=== PATIENT | female | born 1935 | race African-American/Black ===

== ENCOUNTER → 2016-07-27 | Outpatient (CLI) | payer MEDICARE ==
--- NOTE | 2016-07-27 16:04 | RAD ---
DATE: 07/27/16 EXAM: DIGITAL SCREEN BILAT W/CAD HISTORY: Routine screening COMPARISON: 01/24/15 This study was interpreted with the benefit of Computerized Aided Detection (CAD). TECHNIQUE: Routine CC and MLO views of both breasts are obtained. FINDINGS: The breast tissue density is [B ] . shows scattered fibroglandular densities, category B. There are no dominant suspicious masses, suspicious microcalcifications or evidence of architectural distortion. Stable benign-appearing calcifications are seen bilaterally IMPRESSION: Benign findings BI-RADS CATEGORY: 2 BENIGN FINDING(S) RECOMMENDED FOLLOW-UP: 12M 12 MONTH FOLLOW-UP PQRS compliance statement: Patient information was entered into a reminder system with a target due date for the next mammogram. Mammography is a sensitive method for finding small breast cancers, but it does not detect them all and is not a substitute for careful clinical examination. A negative mammogram does not negate a clinically suspicious finding and should not result in delay in biopsying a clinically suspicious abnormality. "Our facility is accredited by the [employer] Mammography Program."
== END | disposition home or self-care (01) ==
LOC: MAMMO 16:05
DX: Z12.31 Encounter for screening mammogram for malignant neoplasm of breast (principal)
CPT/HCPCS: G0202; 77067

== ENCOUNTER 2016-10-10 16:11 | Inpatient (IN) | payer BC, MEDICARE ==
[~2016-10-10] VITALS: Ht 160 cm; Wt 60.8 kg
[2016-10-10] MEDS ORDERED: IPRATRPIUM/ALBUTEROL 0.5/2.5MG 3 ML NEBU. NEB ONE (16:30)
--- NOTE | 2016-10-10 16:35 | ED.ADGEN ---
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 Patient states she is having chest pain only with coughing, abdominal pain with coughing as well, denies any weakness or numbness, and vertiginous symptoms, no fevers or chills, no GI or complaints. States she came to the emergency department today because the cough is getting worse, patient noted to be expressing a fluctuating oxygen saturation, between 89-95%, denies any recent travel or surgery, history of DVT or PE, states she will occasionally have swelling of the lower extremities. Patient does use an albuterol inhaler as needed, last used it several days ago. Review of Systems Review of Systems Constitutional: Denies fever or chills. [] Eyes: Denies change in visual acuity. [] HENT: Denies nasal congestion or sore throat. [] Respiratory: Productive cough or shortness of breath over the past weeks, worsening over the past several days. Cardiovascular: Chest pain with cough, intermittent lower extremity edema.] GI: Denies abdominal pain, nausea, vomiting, bloody stools or diarrhea. [] : Denies dysuria. [] Musculoskeletal: Denies back pain or joint pain. [] Integument: Denies rash. [] Neurologic: Denies headache, focal weakness or sensory changes. [] Endocrine: Denies polyuria or polydipsia. [] Lymphatic: Denies swollen glands. [] Psychiatric: Denies depression or anxiety. [] Current Medications Current Medications Current Medications Medications (Trade) Dose Ordered Sig/Caesar Start Time Stop Time Status Last Admin Dose Admin Albuterol/ Ipratropium (Duoneb) 3 ml 1X ONCE 10/10/16 16:30 10/10/16 16:33 DC 10/10/16 16:41 3 ML Info (Do NOT chart on this entry -- for MONITORING) 1 each PRN DAILY PRN 10/10/16 18:00 10/12/16 17:59 Iohexol (Omnipaque 300 Mg/ml) 75 ml 1X ONCE 10/10/16 18:00 10/10/16 18:01 DC 10/10/16 18:26 75 ML Allergies Allergies Allergies Coded Allergies Type Severity Reaction Last Updated Verified No Known Drug Allergies 10/10/16 No Physical Exam Physical Exam Constitutional: Well developed, well nourished, no acute distress, non-toxic appearance. [] HENT: Normocephalic, atraumatic, bilateral external ears normal, oropharynx moist, no oral exudates, nose normal. [] Eyes: PERRLA, EOMI, conjunctiva normal, no discharge. [] Neck: Normal range of motion, no tenderness, supple, no stridor. [] Cardiovascular:Heart rate regular rhythm, no murmur, S1, S2, rubs or gallops. [] Lungs & Thorax: Diminished breath sounds throughout, mild wheezing noted scattered throughout, no rhonchi or rales. Mild reproducible tenderness palpation in the anterior chest wall, no crepitus. [] Abdomen: Bowel sounds normal, soft, no tenderness, no rebound, rigidity, no guarding, no masses, no pulsatile masses. [] Skin: Warm, dry, no erythema, no rash. [] Back: No tenderness, no CVA tenderness. [] Extremities: No tenderness, no cyanosis, no clubbing, ROM intact, no edema. Negative Homans sign. [] Neurologic: Alert and oriented X 3, normal motor function, normal sensory function, no focal deficits noted. [] Psychologic: Affect normal, judgement normal, mood normal. [] Current Patient Data Vital Signs Vital Signs Date Time Temp Pulse Resp B/P (MAP) Pulse Ox O2 Delivery O2 Flow Rate FiO2 10/10/16 19:00 92 29 158/83 (108) 91 Room Air 10/10/16 16:20 98.7 98.7 Lab Values Laboratory Tests Test 10/10/16 16:50 White Blood Count 4.5 x10^3/uL (4.0-11.0) Red Blood Count 3.86 x10^6/uL (3.50-5.40) Hemoglobin 11.7 g/dL (12.0-15.5) L Hematocrit 34.7 % (36.0-47.0) L Mean Corpuscular Volume 90 fL (79-100) Mean Corpuscular Hemoglobin 30 pg (25-35) Mean Corpuscular Hemoglobin Concent 34 g/dL (31-37) Red Cell Distribution Width 13.9 % (11.5-14.5) Platelet Count 240 x10^3/uL (140-400) Neutrophils (%) (Auto) 35 % (31-73) Lymphocytes (%) (Auto) 48 % (24-48) Monocytes (%) (Auto) 10 % (0-9) H Eosinophils (%) (Auto) 6 % (0-3) H Basophils (%) (Auto) 1 % (0-3) Neutrophils # (Auto) 1.6 x10^3uL (1.8-7.7) L Lymphocytes # (Auto) 2.2 x10^3/uL (1.0-4.8) Monocytes # (Auto) 0.5 x10^3/uL (0.0-1.1) Eosinophils # (Auto) 0.2 x10^3/uL (0.0-0.7) Basophils # (Auto) 0.0 x10^3/uL (0.0-0.2) Sodium Level 139 mmol/L (136-145) Potassium Level 3.6 mmol/L (3.5-5.1) Chloride Level 102 mmol/L (98-107) Carbon Dioxide Level 34 mmol/L (21-32) H Anion Gap 3 (6-14) L Blood Urea Nitrogen 13 mg/dL (7-20) Creatinine 0.6 mg/dL (0.6-1.0) Estimated GFR (Cockcroft-Gault) 115.5 BUN/Creatinine Ratio 22 (6-20) H Glucose Level 94 mg/dL (70-99) Calcium Level 9.7 mg/dL (8.5-10.1) Total Bilirubin 0.2 mg/dL (0.2-1.0) Aspartate Amino Transferase (AST) 22 U/L (15-37) Alanine Aminotransferase (ALT) 12 U/L (14-59) L Alkaline Phosphatase 67 U/L (46-116) Troponin I Quantitative < 0.017 ng/mL (0.000-0.055) TP-Wek-T-Type Natriuretic Peptide 329 pg/mL (0-449) Total Protein 9.4 g/dL (6.4-8.2) H Albumin 3.2 g/dL (3.4-5.0) L Albumin/Globulin Ratio 0.5 (1.0-1.7) L Thyroid Stimulating Hormone (TSH) 2.169 uIU/mL (0.358-3.74) Laboratory Tests 10/10/16 16:50 Laboratory Tests 10/10/16 16:50 EKG EKG EC: Sinus rhythm, heart rate 90 bpm, QTC of 457, CO 138, QRS of 102, left axis deviation with left ventricular hypertrophy, abnormal ECG, does not meet STEMI criteria. No prior for comparison. As interpreted by me. [] Radiology/Procedures Radiology/Procedures [][facility] [address] [place] [address] IMAGING REPORT Signed PATIENT: CURTIS DE DIOS ACCOUNT: [id number] : 1935 LOCATION: ER AGE: 81 SEX: F EXAM STATUS: REG ER ORD. PHYSICIAN: ZI TOLEDO DO REASON: SOB/Hypoxia/Cough PROCEDURE: CT ANGIOGRAPHY CHEST CT angiogram of the chest with contrast: Reason for examination: Shortness of breath and hypoxia with cough. Helical images were obtained through the chest with intravenous administration of 75 cc Omnipaque 300 using PE protocol. 3D MIPS reconstruction was performed in sagittal and coronal planes. There appears to be a large soft tissue density in the left paratracheal region in the superior mediastinum measuring approximately 5.8 x 8.1 centimeters in greatest transaxial dimensions which likely represents a thyroid mass and causes deviation of the trachea to the right. Trachea and mainstem bronchi show no intraluminal lesions. No abnormalities seen in the esophagus. The thoracic aorta is tortuous with arteriosclerotic vascular calcification but no aneurysmal dilatation or dissection is seen. The heart size is upper normal with no pericardial effusion. There is no evidence of pulmonary embolus. There are however patchy infiltrates bilaterally which are suspicious of bilateral pneumonia. No pleural effusions are seen. No pneumothorax is present. In the visualized portion of the abdomen, no abnormalities seen in the liver, spleen or adrenal glands. Impression: No evidence of pulmonary embolus. Patchy infiltrates bilaterally. Large soft tissue density in the left paratracheal region and superior mediastinum suspicious of a large thyroid mass. Further evaluation with ultrasound can be performed. Exposure: One or more of the following individualized dose reduction techniques were used for this examination: 1. Automated exposure control. 2. Adjustment of the mA and/or kV according to patient size. 3. Use of iterative reconstruction technique. Electronically signed by: Germania Gloria MD (October 10, 2016 18:41:35) DICTATED and SIGNED BY: MARIA DOLORES GLORIA MD DATE: 10/10/16 1841 CC: ZI TOLEDO DO; NO PCP ~ Course & Med Decision Making Course & Med Decision Making Pertinent Labs and Imaging studies reviewed. (See chart for details) Patient with a fluctuating oxygen saturation, down to 89%, up to the mid 90s. Patient is agreeable to receiving x-ray laboratory studies, x-ray reveals patchy infiltrates bilaterally, concern for a possible mass in the mediastinum. CT of the chest obtained to further elucidate this evaluation, reveals patchy of present stated, and a thyroid mass extending to the mediastinum. Did discuss this with patient and family patient has A history of a thyroid mass/cancer that was treated with iodine, as far as they are aware the patient is not experiencing any problems currently, and does not require any medication for her thyroid at this point. Patient is agreeable for admission to the hospital, treatment with antibiotics. Initiated antibiotic in the emergency department, without issue. Findings as above discussed with Dr. Troncoso, patient does not currently her primary care provider but did have an appointment to see Dr. Baker last week which she missed do not feeling well, he is agreeable to accept the patient to his service in behalf of her soon-to-be primary so she will be able to establish continuity of care. Consultation also placed for pulmonary for further evaluation. Patient remained stable and comfortable in the emergency department sinus rhythm, transfer to the floor without issue. Dragon Disclaimer Dragon Disclaimer This electronic medical record was generated, in whole or in part, using a voice recognition dictation system. Departure Impression: Primary Impression: Community acquired pneumonia Disposition: ADMITTED INPATIENT Admitting Physician: Felicitas Baker Condition: IMPROVED ZI TOLEDO DO October 10, 2016 16:35
[2016-10-10 17:03] LABS: BASO % 1 % (0-3); EOS % 6 % (0-3); HEMATOCRIT 34.7 % (36.0-47.0); HEMOGLOBIN 11.7 g/dL (12.0-15.5); LYMPH # 2.2 x10^3/uL (1.0-4.8); LYMPH % 48 % (24-48); MEAN CORPUSCULAR HEMOGLOBIN 30 pg (25-35); MEAN CORPUSCULAR HGB CONC 34 g/dL (31-37); MEAN CORPUSCULAR VOLUME 90 fL (79-100); MONO % 10 % (0-9); NEUT % 35 % (31-73); PLATELET COUNT 240 x10^3/uL (140-400); RED BLOOD COUNT 3.86 x10^6/uL (3.50-5.40); RED CELL DISTRIBUTION WIDTH 13.9 % (11.5-14.5); WHITE BLOOD COUNT 4.5 x10^3/uL (4.0-11.0)
[2016-10-10 17:15] LABS: CALCIUM 9.7 mg/dL (8.5-10.1); CREATININE 0.6 mg/dL (0.6-1.0); GFR 115.5; POTASSIUM 3.6 mmol/L (3.5-5.1)
[2016-10-10 17:25] LABS: ALBUMIN 3.2 g/dL (3.4-5.0); ALBUMIN/GLOBULIN RATIO 0.5 (1.0-1.7); TOTAL BILIRUBIN 0.2 mg/dL (0.2-1.0); TOTAL PROTEIN 9.4 g/dL (6.4-8.2)
[2016-10-10] MEDS ORDERED: CONTRAST GIVEN MC PRN (18:00)
[2016-10-10] MEDS ORDERED: IOHEXOL 300 MG/ML 75 ML VIAL IV ONE (18:00)
--- NOTE | 2016-10-10 18:43 | RAD ---
CT angiogram of the chest with contrast: Reason for examination: Shortness of breath and hypoxia with cough. Helical images were obtained through the chest with intravenous administration of 75 cc Omnipaque 300 using PE protocol. 3D MIPS reconstruction was performed in sagittal and coronal planes. There appears to be a large soft tissue density in the left paratracheal region in the superior mediastinum measuring approximately 5.8 x 8.1 centimeters in greatest transaxial dimensions which likely represents a thyroid mass and causes deviation of the trachea to the right. Trachea and mainstem bronchi show no intraluminal lesions. No abnormalities seen in the esophagus. The thoracic aorta is tortuous with arteriosclerotic vascular calcification but no aneurysmal dilatation or dissection is seen. The heart size is upper normal with no pericardial effusion. There is no evidence of pulmonary embolus. There are however patchy infiltrates bilaterally which are suspicious of bilateral pneumonia. No pleural effusions are seen. No pneumothorax is present. In the visualized portion of the abdomen, no abnormalities seen in the liver, spleen or adrenal glands. Impression: No evidence of pulmonary embolus. Patchy infiltrates bilaterally. Large soft tissue density in the left paratracheal region and superior mediastinum suspicious of a large thyroid mass. Further evaluation with ultrasound can be performed. Exposure: One or more of the following individualized dose reduction techniques were used for this examination: 1. Automated exposure control. 2. Adjustment of the mA and/or kV according to patient size. 3. Use of iterative reconstruction technique. Electronically signed by: Germania Kramer MD (October 10, 2016 18:41:35)
--- NOTE | 2016-10-10 19:06 | ACF ---
Admission Forms Criteria GENERAL ADMISSION CRITERIA (Place 'X' for any and all applicable criteria): Admission is indicated for ANY ONE of the following: [ ]I. Hemodynamic instability as indicated by ANY ONE of the following(1)(2) (3)(4)(5): [ ]a) Vital sign abnormality not readily corrected by appropriate treatment within 12 to 24 hours indicated by ANY ONE of the following: [ ]i) Hypotension [ ]ii) Symptomatic Tachycardia unresponsive to treatment (eg , analgesia, fluids, sedation as indicated) [ ]iii) Orthostatic vital sign changes unresponsive to treatment (eg, fluids) [ ]b) Vital sign abnormality that is severe indicated by ANY ONE of the following: [ ]i) Inadequate perfusion indicated by ANY ONE of the following: [ ]1) Lactic acidosis (greater than 2 mmol/L) [ ]2) New abnormal capillary refill (greater than 3 seconds) [ ]3) Other metabolic acidosis (arterial pH less than 7.35) not otherwise explained [ ]4) Reduced urine output [ ]5) Altered mental status [ ]6) Myocardial Ischemia [ ]v) Mean arterial pressure[A] less than 60 mm Hg [ ]vi) Mean arterial pressure[A] less than 70 mm Hg after 30 minutes of appropriate treatment (eg, fluid resuscitation) [ ]vii) IV inotropic or vasopressor medication required to maintain adequate blood pressure or perfusion [ ]viii) Sustained heart rate greater than 120 beats per minute in adult or child 6 years or older[B]] [ ]II. Hypertension requiring inpatient treatment as indicated by ANY ONE of the following(6)(7)(8): [ ]a) SBP greater than 220 mm Hg or DBP greater than 120 mm Hg despite treatment [ ]b) SBP greater than 140 mm Hg or DBP greater than 100 mm Hg with evidence of acute end organ damage as indicated by ANY ONE of the following: [ ]i) Encephalopathy [ ]ii) Acute renal failure as indicated by new onset of ANY ONE of the following(9)(10)(11)(12)(13): [ ]1) A 3-fold rise in serum creatinine from baseline [ ]2) Serum creatinine greater than 4 mg/dL ( 354 micromoles/L) with acute rise greater than 0.5 mg/dL (44.2 micromoles/L) [ ]3) Reduction of more than 75% in estimated glomerular filtration rate from baseline [ ]4) Estimated glomerular filtration rate less than 35 mL/min/1.73m2 (0.59 mL/sec/1.73m2) in child up to 18 years of age [ ]5) Cessation of urine output indicated by ALL of the following: [ ]A. Adequate volume status [ ]B. Inadequate urine output as indicated by ANY ONE of the following: [ ]a. Urine output less than 0.3 mL/kg/hr for 24 hours [ ]b. Anuria (urine output less than 0.1 mL/kg/hr) for 12 hours [ ]iii) Aortic dissection [ ]iv) Myocardial ischemia [ ]v) Left ventricular heart failure [ ]vi) Retinal hemorrhage [ ]vii) Other significant finding [ ]c) Hypertension in child requiring inpatient treatment as indicated by ALL of the following(14)(15)(16): [ ]i) Outpatient treatment not effective, not available, or not appropriate [ ]ii) SBP or DBP greater than 95th percentile for age [ ]iii) Evidence of acute end organ damage as indicated by ANY ONE of the following: [ ]1) Altered mental status [ ]2) Acute renal failure as indicated by new onset of ANY ONE of the following(9)(10)(11)(12)(13): [ ]A. A 3-fold rise in serum creatinine from baseline [ ]B. Serum creatinine greater than 4 mg/dL (354 micromoles/L) with acute rise greater than 0.5 mg/dL (44.2 micromoles/L) [ ]C. Reduction of more than 75% in estimated glomerular filtration rate from baseline [ ]D. Estimated glomerular filtration rate less than 35 mL/min/1.73m2 (0.59 mL/sec/1.73m2)in child up to 18 years of age [ ]E. Cessation of urine output indicated by ALL of the following: [ ]a. Adequate volume status [ ]b. Inadequate urine output as indicated by ANY ONE of the following: [ ]1) Urine output less than 0.3 mL/kg/hr for 24 hours [ ]2) Anuria (urine output less than 0.1 mL/kg/hr) for 12 hours [ ]3) Severe headache [ ]4) Visual disturbance [ ]5) Retinal hemorrhage [ ]6) Other significant finding [ ]III. Acute cardiac or peripheral ischemia as indicated by ANY ONE of the following: [ ]a) Acute coronary syndrome(17)(18) [ ]b) Acute peripheral ischemia (eg, pulseless, cool, mottled, or cyanotic extremity)(19) [ ]IV. Cardiac arrhythmias or findings of immediate concern indicated by ANY ONE of the following(20)(21): [ ]a) Heart rhythms that are inherently dangerous or unstable indicated by ANY ONE of the following(22)(23)(24): [ ]i) Resuscitated ventricular fibrillation or cardiac arrest [ ]ii) Ventricular escape rhythm [ ]iii) Sustained ventricular tachycardia (30 seconds or more of ventricular rhythm at greater than 100 beats per minute) [ ]iv) Nonsustained ventricular tachycardia and ANY ONE of the following: [ ]1) Suspected cardiac ischemia as cause or consequence of ventricular tachycardia [ ]2) In setting of acute myocarditis [ ]b) Unstable cardiac conduction defects indicated by ANY ONE of the following(24)(25)(26): [ ]i) Type II second-degree atrioventricular block [ ]ii) Third-degree atrioventricular block [ ]iii) New-onset left bundle branch block with suspected myocardial ischemia [ ]c) Any heart rhythm and ANY ONE of the following(22)(23)(27)(28)( 29): [ ] i) Continuous long-term ECG monitoring needed (eg, initiation of drug requiring monitoring for more than 24 hours) [ ] ii) Patient has automatic implanted cardioverter defibrillator that is repeatedly firing, malfunctioning, or in need of immediate adjustment of settings beyond the scope of ambulatory or observation care. [ ]d) Heart rhythms of concern due to ANY ONE of the following: [ ]i) Hypotension [ ]ii) Respiratory distress [ ]iii) Association with other significant symptoms (eg, bradycardia with syncope or ongoing dizziness, supraventricular tachycardia with chest pain) (27)(28) (30) [ ] V. Severe heart failure as indicated by ANY ONE of the following ( 31)(32): [ ]a) Respiratory distress [ ]b) Hypotension [ ]c) Anasarca (refractory to outpatient therapy) [ ]d) Cardiac arrhythmias of immediate concern [ ]e) Myocardial ischemia [X]. Respiratory abnormalities, including ANY ONE of the following(33)(34) (35)(36): [ ]a) Respiratory rate greater than 30 breaths per minute unresponsive to treatment [A] [ ]b) New saturation of arterial oxygen less than 90% [ ]c) New partial pressure of carbon dioxide greater than 44 mm Hg ( 5.9 kPa) [X]d) Supplemental oxygen or respiratory treatments needed that are new or not performable at other levels of care [ ]e) New-onset cyanosis [ ]f) Inability to protect airway [ ]g) Chronic lung disease with severe deterioration (not responsive to emergency and observation care treatment as appropriate) as indicated by ANY ONE of the following(34)(36 ): [ ]i) SaO2 5% below baseline in patient with chronic hypoxemia [ ]ii) New requirement for supplemental oxygen to keep SaO2 at baseline or acceptable level [ ]iii) Required supplemental oxygen performable only in acute inpatient setting [ ]iv) Severe airflow or ventilation abnormalities [ ]v) Previously mobile patient unable to walk between rooms [ ]vi Inability to eat or sleep due to dyspnea [ ]vii) Rapid rate of exacerbation onset [ ]viii) Altered mental status ]VII. Severe airflow or ventilation abnormalities (not responsive to emergency and observation care treatment as appropriate) as indicated by ANY ONE of the following(33)(34)(35)(37): [ ]a) PCO2 greater than 42 mm Hg (5.6 kPa) and pH less than 7.35 (new ) [ ]b) Documented PCO2 increased more than 5 mm Hg (0.7 kPa) from disease baseline [ ]c) Airflow measurements [B] less than 60% of previous best or predicted (eg, peak expiratory flow rate less than 300 L/minute) despite intensive emergent treatment [C] [ ]d) Required respiratory treatments that are performable only in acute inpatient setting [ ]VIII. Impending or actual respiratory arrest ( Also use Respiratory Failure GRG for severe respiratory disease and long-term mechanical ventilation patients) [ ]IX. Neurologic abnormalities, including ANY ONE of the following: [ ]a) New findings that suggest ANY ONE of the following: [ ]i) CERTIFIED ETHICAL HACKER infection(38) [ ]ii) Cerebral bleeding, ischemia, or vasospasm(39)(40) [ ]iii) Increased intracranial pressure, hydrocephalus, or cerebral edema(41)(42)(43) [ ]iv) Spinal cord injury(44) [ ]b) Uncontrolled seizures(45) [ ]c) New-onset coma (eg, Andres coma scale score less than 9) or unexplained abnormal mental status (eg, Andres coma scale score less than 14) [D](41)(46)(47) [ ]X. New-onset severe neurologic findings requiring inpatient care; examples include(42)(48)(49): [ ]a) Papilledema [ ]b) Cerebral edema [ ]c) Mass effect on CT scan [ ]XI. Suspected acute intra-abdominal process with peritoneal signs, abdominal mass, or similar findings (50)(51)(52) [ ]XII. Severe physiologic disorder remaining after emergency or observation level care (as appropriate) as indicated by ANY ONE of the following (53): [ ]a) Significant dehydration [ ]b) Diabetic ketoacidosis [ ]c) Hyperglycemic hyperosmolar state (eg, osmolality greater than 320 mOsm/kg (mmol/kg) [ ]d) Hypoglycemia [ ]e) Other (new) acid-base disorder with pH less than 7.35 or greater than 7.5(54) [ ]f) Thyroid storm (55) [ ]g) Myxedema coma (55) [ ]XIII. Abdominal abnormalities with ANY ONE of the following(56)(57): [ ]a) Absent bowel sounds with complete ileus [ ]b) Signs of intestinal obstruction or peritonitis [E] [ ]c) Nausea and vomiting that cannot be controlled with outpatient or observation care [ ]XIV. Acute renal failure as indicated by new onset of ANY ONE of the following(9)(10)(11)(12)(13): [ ]a) A 3-fold rise in serum creatinine from baseline [ ]b) Serum creatinine greater than 4 mg/dL (354 micromoles/L) with acute rise greater than 0.5 mg/dL (44.2 micromoles/L) [ ]c) Reduction of more than 75% in estimated glomerular filtration rate from baseline [ ]d) Estimated glomerular filtration rate less than 35 mL/min/ 1.73m2 (0.59 mL/sec/1.73m2) in child up to 18 years of age [ ]e) Cessation of urine output indicated by ALL of the following: [ ]i) Adequate volume status [ ]ii) Inadequate urine output as indicated by ANY ONE of the following: [ ]1) Urine output less than 0.3 mL/kg/hr for 24 hours [ ]2) Anuria (urine output less than 0.1 mL/kg/hr) for 12 hours [ ]XV. Significant uremic complications as indicated by ANY ONE of the following(58)(59)(60): [ ]a) Outpatient therapy is ineffective or not feasible for ANY ONE of the following: [ ]i) Severe heart failure [ ]ii) Severehypertension [ ]iii) Pleural effusion [ ]iv) Pericarditis or pericardial effusion [ ]b) Cardiac arrhythmias of immediate concern [ ]c) Intractable nausea or vomiting [ ]d) Recurrent seizures [ ]e) Encephalopathy [ ]f) Bleeding abnormalities (eg, platelet dysfunction) with active (eg, gastrointestinal) bleeding [ ]g) Dialysis indicated before long-term access or ambulatory arrangements can be made [ ]h) Significant metabolic or electrolyte abnormalities (eg, severe acidosis or hyperkalemia) [ ]XVI. High fever or other high-risk infection situation as indicated by ANY ONE of the following(61)(62)(63)(64): [ ]a) Outpatient and observation care antimicrobial treatment unavailable, not effective, or not appropriate [ ]b) Documented bacteremia [ ]c) Temperature greater than 40.5 degrees C (104.9 degrees F) ( oral) [ ]d) Temperature greater than 39.5 degrees C (103.1 degrees F) ( oral) or less than 36 degrees C (96.8 degrees F) (rectal) that does not respond to e treatment and observation care [ ] XVII. Temperature less than 95 degrees F (35 degrees C)(rectal)(65) [ ] XVIII. Severe nutritional abnormalities as indicated by ALL of the following (66)(67): [ ]a) Inability to tolerate or establish sufficient oral or other enteral nutrition in outpatient setting [ ]b) Parenteral nutrition regimen need that must be implemented on inpatient basis [ ] XIX. Severe electrolyte abnormalities indicated by ALL of the following(68) (69)(70): [ ]a) Electrolytes and associated findings are not as expected for patient baseline or acceptable treatment effects. [ ]b) Severe abnormalities indicated by ANY ONE of the following: [ ]i) Sodium less than 130 mEq/L (mmol/L) (new) [ ]ii)Sodium less than 135 mEq/L (mmol/L) with ANY ONE of the following: [ ]1) Uncorrectable (to near normal or chronic baseline) after trial of outpatient and emergency treatment [ ]2) Altered mental status [ ]3) Seizures [ ]4) Severe medical etiology requiring inpatient management (eg, heart failure, hypovolemia) [ ]iii) Sodium greater than 155 mEq/L (mmol/L) [ ]iv) Sodium greater than 150 mEq/L (mmol/L) with ANY ONE of the following: [ ]1) Uncorrectable (to near normal or chronic baseline) with outpatient and emergency treatment [ ]2) Altered mental status [ ]3) Seizures [ ]4) Severe medical etiology (eg, hypovolemia, diabetes insipidus) [ ]v) Potassium less than 2.5 mEq/L (mmol/L) despite outpatient and emergency treatment [ ]vi) Potassium less than 3 mEq/L (mmol/L) with ANY ONE of the following: [ ]1) Weakness [ ]2) Cardiac abnormality (eg, arrhythmia, conduction disturbance) [ ]3) Cardiac ischemia [ ]4) Ileus [ ]5) Ongoing medical cause requiring inpatient management (eg, acute renal wasting or SIADH) [ ]6) Other severe symptoms [ ]vii) Potassium greater than 6.5 mEq/L (mmol/L) [ ]viii) Potassium greater than 5 mEq/L (mmol/L) with ANY ONE of the following: [ ]1) Uncorrectable (to near normal or chronic baseline) with outpatient and emergency treatment [ ]2) Severe ECG findings [F] [ ]3) Acute worsening of renal failure (creatinine greater than 2.5 mg/dL (221 micromoles/L) or significant elevation for age and size) [ ]4) Severe weakness [ ]5) Severe medical etiology (eg, hemolysis, infection, drug overdose) [ ]ix) Calcium less than 7 mg/dL (1.75 mmol/L) despite outpatient and emergency treatment (72) [ ]x) Calcium less than 8 mg/dL (2 mmol/L) with significant symptoms or findings; examples include(72): [ ]1) Altered mental status [ ]2) Muscle spasms [ ]3) Seizures [ ]4) Breathing difficulty [ ]5) Cardiac abnormality (eg, arrhythmia or conduction disturbance) [ ]xi) Calcium greater than 14 mg/dL (3.5 mmol/L)(72) [ ]xii) Calcium greater than 12 mg/dL (3 mmol/L) with ANY ONE of the following(72): [ ]1) Uncorrectable (to near normal or chronic baseline) with outpatient and emergency treatment [ ]2) Significant dehydration or hypovolemia as indicated by ALL of the following(70)(73)(74): [ ]A. Not resolved with initial treatments [ ]B. Clinically significant dehydration as indicated by ANY ONE of the following: [ ]a. Vomiting refractory to outpatient treatment (ie, precluding oral rehydration) [ ]b. Inability to drink [ ]c. Hypernatremia or other electrolyte abnormality unable to be corrected with outpatient and emergency treatment [ ]d. Failure to remain hydrated with outpatient therapy [ ]e. Reduced urine output [ ]f. Hypotension [ ]g. Serious cause for dehydration requiring acute hospitalization (eg, bowel obstruction, increased intracranial pressure, infectious cause) [ ]h. Child with ANY ONE of the following(75): [ ]1) Severe abdominal tenderness [ ]2) Adequate care not available at home [ ]3) Severe dehydration ( greater than 9% loss of body weight) [ ]4) Significant symptoms or findings; examples include: [ ]A. Altered mental status [ ]B. Cardiac abnormality (eg, arrhythmia, conduction disturbance) [ ]C. Malignant etiology requiring inpatient treatment [ ]xiii) Phosphorus less than 1 mg/dL (0.32 mmol/L) [ ]xiv) Phosphorus less than 1.5 mg/dL (0.48 mmol/L) with ANY ONE of the following: [ ]1) Patient unresponsive to outpatient and emergency treatment [ ]2) Significant symptoms or findings; examples include: [ ]A. Weakness [ ]B. Altered mental status [ ]C. Breathing difficulty [ ]D. Seizures [ ]E. Rhabdomyolysis [ ]xv) Phosphorus greater than 10 mg/dL (3.2 mmol/L) [ ]xvi) Phosphorus greater than 4.5 mg/dL (1.45 mmol/L) (new) with ANY ONE of the following: [ ]1) Severe medical etiology (eg, crush injury, acute renal failure) [ ]2) Associated hypocalcemia with significant findings; examples include: [ ]A. Neurologic symptoms [ ]B. Altered mental status [ ]C. Muscle spasms [ ]D. Seizures [ ]E. Breathing difficulty [ ]F. Cardiac abnormality (eg, arrhythmia, conduction disturbance) [ ]xvii) Magnesium less than 1 mg/dL (0.41 mmol/L) [ ]xviii) Magnesium less than 1.5 mg/dL (0.62 mmol/L) with ANY ONE of the following: [ ]1) Patient unresponsive to outpatient and emergency treatment [ ]2) Associated hypocalcemia with significant findings; examples include: [ ]A. Altered mental status [ ]B. Muscle spasms [ ]C. Seizures [ ]D. Breathing difficulty [ ]E. Cardiac abnormality (eg, arrhythmia , conduction disturbance) [ ]3) Associated hypokalemia (potassium less than 3 mEq/L (mmol/L)) with risk of arrhythmia [ ]xix) Magnesium greater than 4 mEq/L (2 mmol/L) [ ]xx) Magnesium greater than 2.5 mEq/L (1.25 mmol/L) with significant symptoms or findings; examples include: [ ]1) Weakness [ ]2) Altered mental status [ ]3) Cardiac abnormality (eg, arrhythmia, conduction disturbance) [ ]4) Breathing difficulty [ ]5) Severe medical etiology (eg, renal failure, hypovolemia) [ ]xxi) Uric acid greater than 20 mg/dL (1190 micromoles/L)(76) [ ]xxii) Uric acid greater than 8 mg/dL (476 micromoles/L) with significant symptoms or findings of tumor lysis syndrome; examples include(76): [ ]1) Creatinine greater than 1.5 times upper limit of normal [ ]2) Cardiac abnormality (eg, arrhythmia, conduction disturbance) [ ]3) Seizure [ ]XX. Acute blood loss causing significant abnormality as indicated by ANY ONE of the following(77)(78): [ ]a) Hemoglobin less than 10 g/dL (100 g/L) (not baseline) [ ]b) Hematocrit less than 30% (0.30) (not baseline) [ ]c) Repeat hematocrit decreased more than 2% (0.02) [ ]d) Uncontrolled bleeding [ ]XXI. Severe anemia indicated by ANY ONE of the following(78)(79): [ ]a) Altered mental status [ ]b) Chest pain [ ]c) Exertional dyspnea [ ]d) Syncope [ ]e) Other findings suggesting inadequate perfusion [ ]f) Treatment with transfusion or volume replacement is ineffective at resolving ANY ONE of the following [G]: [ ]i) Tachycardia for age [ ]ii) Orthostatic vital sign changes as indicated by ANY ONE of the following(80): [ ]1) Fall in SBP of 20 mm Hg or more 1 to 3 minutes after patient sits or stands from recumbent position [ ]2) Fall in DBP of 10 mm Hg or more 1 to 3 minutes after patient sits or stands from recumbent position [ ]XXII. High-risk low platelet count as indicated by ANY ONE of the following( 81)(82): [ ]a) Severe or life-threatening bleeding (eg, intracranial, major gastrointestinal, or extensive mucosal bleeding), with any reduced platelet count [ ]b) Platelet count less than 20,000/mm3 (20 x109/L) with any active bleeding [ ]c) Platelet count less than 10,000/mm3 (10 x109/L) with minor purpura or petechiae [ ]d) Platelet count less than 5000/mm3 (5 x109/L) [ ]e) Low platelet count with hemolytic anemia [ ]XXIII. Disseminated intravascular coagulation(77)(83) [ ]XXIV. Severe adverse drug or systemic toxin reaction requiring inpatient treatment; examples include(84)(85): [ ]a) Serotonin syndrome(86) [ ]b) Neuroleptic malignant syndrome(86) [ ]c) Cholinergic syndrome with severe symptoms (eg, bronchorrhea, weakness, mental status changes, seizures) [ ]d) Sympathetic syndrome with severe symptoms (eg, seizures, mental status changes, cardiac dysrhythmias) [ ]e) Anticholinergic syndrome [ ]XXV. Severe pain requiring acute inpatient management as indicated by ALL of the following (87)(88)(89): [ ]a) Continuous or frequent (eg, every 2 to 4 hours) parenteral analgesics required [H] [ ]b) Rapid improvement expected from treatment or acute intervention (eg, surgery, anesthesia procedure) [ ]XXVI.Severe behavioral health issues judged unmanageable at a lower level of care (eg, residential) in a patient who is ANY ONE of the following(91) [ ]a) Acutely suicidal [ ]b) A danger to self (eg, self-mutilating or suicidal behavior) [ ]c) A danger to others (eg, assaultive or homicidal behavior) [ ]d) Incapacitated because of grave disability (eg, inability to provide for self at lower level of care) (92) [ ]XXVII. Inpatient monitoring needed; examples include(1)(3)(87)(93)(94)(95)(96 ): [ ]a) Vital signs, neurologic signs, or vascular checks more frequently than every 4 hours [ ]b) Cardiac or respiratory monitoring beyond the scope (eg, over 24 hours) of observation care [ ]c) Pulmonary artery catheter monitoring [ ]d) Suspected compartment syndrome(97) (98) [ ]e) Cerebral bleeding, hydrocephalus, or vasospasm monitoring [ ]f) Increased intracranial pressure or cerebral edema monitoring [ ]g) monitoring [ ]XXVIII. Treatment requiring inpatient care; examples include: [ ]a) IV fluid to replace significant ongoing losses (greater than 3 L/m2 per day)(53) [ ]b) High concentration oxygen (greater than 40%)(33)(99)(100) [ ]c) Frequent respiratory therapy (more frequently than every 4 hours) to maintain airflow rates greater than 60% of baseline(33)(99)(100) [ ]d) Epidural analgesia(87) [ ]e) IV anticoagulation, vasoactive, or antiarrhythmic medication(19 )(23) [ ]f) Acute thrombolytics (generally require 24 hours of observation )(101)(102) [ ]XXIX. Emergency procedures needed; examples include: [ ]a) Emergency inpatient surgery [ ]b) Temporary pacemaker placement(103) [ ]c) Chest tube placement with active evacuation (eg, suction, drainage)(104) [ ]d) Emergent cardioversion(105) [ ]e) Emergent cardiac or vascular procedures (eg, cardiac catheterization, angioplasty) (17)(18) [ ]f) Emergent dialysis access placement and institution(10)(106) [ ]g) Emergent pericardiocentesis(107) [ ]h) Emergent plasmapheresis or leukapheresis(83) [ ]i) Emergent tracheostomy The original [employer] content created by [employer] has been revised. The portions of the content which have been revised are identified through the use of italic text or in bold, and [facility] has neither reviewed nor approved the modified material. All other unmodified content is copyright [employer]. Please see references footnoted in the original [facility] edition 2016 Admission Criteria Met?: Yes RANDA BAIRD October 10, 2016 19:06
[2016-10-10] MEDS ORDERED: AZITHRMYCN 500MG IVPB FOR OMNI 250 ML IV ONE (19:30)
[2016-10-10] MEDS ORDERED: IV NORMAL SALINE 1000ML BAG 1,000 ML IV SCH (20:19)
[2016-10-10] MEDS ORDERED: ONDANSETRON PF 4 MG/2 ML VIAL. IV PRN (20:30)
[2016-10-10] MEDS ORDERED: ACETAMINOPHEN 325 MG TABLET. PO PRN (20:30)
[2016-10-10 20:48] VITALS: BP 157/79
[2016-10-10] MEDS ORDERED: [UNRECOGNIZED DRUG - OTHER] PO (22:06)
[2016-10-10] MEDS ORDERED: Albuterol Inhaler (22:14)
[2016-10-10 22:50] VITALS: BP 143/75
[2016-10-10] MEDS: guaiFENesin DM 200MG/20MG 10 ML SYRUP PO PRN (23:16)
[2016-10-11 03:00] VITALS: BP 156/78
[2016-10-11] MEDS: guaiFENesin DM 200MG/20MG 10 ML SYRUP PO PRN (03:04)
[2016-10-11 04:22] LABS: BASO % 1 % (0-3); EOS % 3 % (0-3); HEMATOCRIT 33.7 % (36.0-47.0); HEMOGLOBIN 11.3 g/dL (12.0-15.5); LYMPH # 1.9 x10^3/uL (1.0-4.8); LYMPH % 45 % (24-48); MEAN CORPUSCULAR HEMOGLOBIN 30 pg (25-35); MEAN CORPUSCULAR HGB CONC 34 g/dL (31-37); MEAN CORPUSCULAR VOLUME 90 fL (79-100); MONO % 10 % (0-9); NEUT % 41 % (31-73); PLATELET COUNT 223 x10^3/uL (140-400); RED BLOOD COUNT 3.75 x10^6/uL (3.50-5.40); WHITE BLOOD COUNT 4.2 x10^3/uL (4.0-11.0)
[2016-10-11 04:34] LABS: CALCIUM 8.2 mg/dL (8.5-10.1); CREATININE 0.5 mg/dL (0.6-1.0); GFR 142.6; POTASSIUM 3.8 mmol/L (3.5-5.1)
--- NOTE | 2016-10-11 06:14 | EKG ---
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
[2016-10-11 07:00] VITALS: BP 162/79
[2016-10-11] MEDS ORDERED: ACETAMINOPHEN 325 MG TABLET. PO PRN (07:45)
[2016-10-11] MEDS ORDERED: ONDANSETRON PF 4 MG/2 ML VIAL. IV PRN (07:45)
[2016-10-11] MEDS: IPRATRPIUM/ALBUTEROL 0.5/2.5MG 3 ML NEBU. NEB SCH ×4 (08:00→20:28)
[2016-10-11] MEDS ORDERED: IPRATRPIUM/ALBUTEROL 0.5/2.5MG 3 ML NEBU. NEB SCH (08:00)
--- NOTE | 2016-10-11 08:03 | PDOC1 ---
KIN RIVERA GENERAL ASSEMBLER INSTALLER 10/11/16 0803: HISTORY AND PHYSICAL Chief Complaint Chief Complaint This 81 year old female has been admitted with a chief complaint of CAP. She has not been seen by PCP since May. She was formerly a Dr. Gamboa patient and the next PCP she chose after Dr. Gamboa passed stopped practicing. She has chosen Dr. Baker as PCP to establish care with him. She reports onset of a cough productive thick yellow sputum three to four days ago. She has increasing shortness of breath and pain in her chest/abdomen from the cough. She presented to the ED for evaluation and treatment. Her O2 Sats ranged from 89-95%. 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 Duoneb treatment was administered, Zithromax 500mg IV and Rocepin 1gm IV was administered. She has a h/o goiter and underwent ablation treatment. She is not on thyroid medication and her TSH was 2.169. She is admitted for further evaluation and treatment. . 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 No h/o tobacco, ETOH, or illicit drug use. Review of Symptoms Review of Symptoms A 14 point ROS was completed with the following noted as positive: per HPI Other systems reviewed and negative. Medications Medications reviewed and reconciled Allergy Allergies Coded Allergies Type Severity Reaction Last Updated Verified No Known Drug Allergies 10/10/16 No Physical Exam Physical Exam General appearance - alert,well appearing, and in no distress Mental Status - alert, oriented to person, place, and time, affect appropriate to mood Head - normal Chest - coarse R ant. productive cough thick lt green tinge sputum Heart - S1 and S2 normal Abdomen - soft, nontender, nondistended, BS+ Neurological - no acute focal neurological deficit noted. Musculoskeletal - no muscular tenderness noted Extremities - no pedal edema Skin - warm and dry VTE Prophylaxis Ordered VTE Prophylaxis Devices: Yes VTE Pharmacological Prophylaxi: No Assessment Labs Laboratory Tests Test 10/10/16 16:50 10/11/16 04:09 White Blood Count 4.5 x10^3/uL (4.0-11.0) 4.2 x10^3/uL (4.0-11.0) Red Blood Count 3.86 x10^6/uL (3.50-5.40) 3.75 x10^6/uL (3.50-5.40) Hemoglobin 11.7 g/dL (12.0-15.5) 11.3 g/dL (12.0-15.5) Hematocrit 34.7 % (36.0-47.0) 33.7 % (36.0-47.0) Mean Corpuscular Volume 90 fL (79-100) 90 fL (79-100) Mean Corpuscular Hemoglobin 30 pg (25-35) 30 pg (25-35) Mean Corpuscular Hemoglobin Concent 34 g/dL (31-37) 34 g/dL (31-37) Red Cell Distribution Width 13.9 % (11.5-14.5) 14.0 % (11.5-14.5) Platelet Count 240 x10^3/uL (140-400) 223 x10^3/uL (140-400) Neutrophils (%) (Auto) 35 % (31-73) 41 % (31-73) Lymphocytes (%) (Auto) 48 % (24-48) 45 % (24-48) Monocytes (%) (Auto) 10 % (0-9) 10 % (0-9) Eosinophils (%) (Auto) 6 % (0-3) 3 % (0-3) Basophils (%) (Auto) 1 % (0-3) 1 % (0-3) Neutrophils # (Auto) 1.6 x10^3uL (1.8-7.7) 1.7 x10^3uL (1.8-7.7) Lymphocytes # (Auto) 2.2 x10^3/uL (1.0-4.8) 1.9 x10^3/uL (1.0-4.8) Monocytes # (Auto) 0.5 x10^3/uL (0.0-1.1) 0.4 x10^3/uL (0.0-1.1) Eosinophils # (Auto) 0.2 x10^3/uL (0.0-0.7) 0.1 x10^3/uL (0.0-0.7) Basophils # (Auto) 0.0 x10^3/uL (0.0-0.2) 0.0 x10^3/uL (0.0-0.2) Sodium Level 139 mmol/L (136-145) 138 mmol/L (136-145) Potassium Level 3.6 mmol/L (3.5-5.1) 3.8 mmol/L (3.5-5.1) Chloride Level 102 mmol/L (98-107) 103 mmol/L (98-107) Carbon Dioxide Level 34 mmol/L (21-32) 30 mmol/L (21-32) Anion Gap 3 (6-14) 5 (6-14) Blood Urea Nitrogen 13 mg/dL (7-20) 10 mg/dL (7-20) Creatinine 0.6 mg/dL (0.6-1.0) 0.5 mg/dL (0.6-1.0) Estimated GFR (Cockcroft-Gault) 115.5 142.6 BUN/Creatinine Ratio 22 (6-20) Glucose Level 94 mg/dL (70-99) 108 mg/dL (70-99) Calcium Level 9.7 mg/dL (8.5-10.1) 8.2 mg/dL (8.5-10.1) Total Bilirubin 0.2 mg/dL (0.2-1.0) Aspartate Amino Transf (AST/SGOT) 22 U/L (15-37) Alanine Aminotransferase (ALT/SGPT) 12 U/L (14-59) Alkaline Phosphatase 67 U/L (46-116) Troponin I Quantitative < 0.017 ng/mL (0.000-0.055) PH-Qls-D-Type Natriuretic Peptide 329 pg/mL (0-449) Total Protein 9.4 g/dL (6.4-8.2) Albumin 3.2 g/dL (3.4-5.0) Albumin/Globulin Ratio 0.5 (1.0-1.7) Thyroid Stimulating Hormone (TSH) 2.169 uIU/mL (0.358-3.74) Laboratory Tests Test 10/10/16 16:50 10/11/16 04:09 White Blood Count 4.5 x10^3/uL (4.0-11.0) 4.2 x10^3/uL (4.0-11.0) Red Blood Count 3.86 x10^6/uL (3.50-5.40) 3.75 x10^6/uL (3.50-5.40) Hemoglobin 11.7 g/dL (12.0-15.5) 11.3 g/dL (12.0-15.5) Hematocrit 34.7 % (36.0-47.0) 33.7 % (36.0-47.0) Mean Corpuscular Volume 90 fL (79-100) 90 fL (79-100) Mean Corpuscular Hemoglobin 30 pg (25-35) 30 pg (25-35) Mean Corpuscular Hemoglobin Concent 34 g/dL (31-37) 34 g/dL (31-37) Red Cell Distribution Width 13.9 % (11.5-14.5) 14.0 % (11.5-14.5) Platelet Count 240 x10^3/uL (140-400) 223 x10^3/uL (140-400) Neutrophils (%) (Auto) 35 % (31-73) 41 % (31-73) Lymphocytes (%) (Auto) 48 % (24-48) 45 % (24-48) Monocytes (%) (Auto) 10 % (0-9) 10 % (0-9) Eosinophils (%) (Auto) 6 % (0-3) 3 % (0-3) Basophils (%) (Auto) 1 % (0-3) 1 % (0-3) Neutrophils # (Auto) 1.6 x10^3uL (1.8-7.7) 1.7 x10^3uL (1.8-7.7) Lymphocytes # (Auto) 2.2 x10^3/uL (1.0-4.8) 1.9 x10^3/uL (1.0-4.8) Monocytes # (Auto) 0.5 x10^3/uL (0.0-1.1) 0.4 x10^3/uL (0.0-1.1) Eosinophils # (Auto) 0.2 x10^3/uL (0.0-0.7) 0.1 x10^3/uL (0.0-0.7) Basophils # (Auto) 0.0 x10^3/uL (0.0-0.2) 0.0 x10^3/uL (0.0-0.2) Sodium Level 139 mmol/L (136-145) 138 mmol/L (136-145) Potassium Level 3.6 mmol/L (3.5-5.1) 3.8 mmol/L (3.5-5.1) Chloride Level 102 mmol/L (98-107) 103 mmol/L (98-107) Carbon Dioxide Level 34 mmol/L (21-32) 30 mmol/L (21-32) Anion Gap 3 (6-14) 5 (6-14) Blood Urea Nitrogen 13 mg/dL (7-20) 10 mg/dL (7-20) Creatinine 0.6 mg/dL (0.6-1.0) 0.5 mg/dL (0.6-1.0) Estimated GFR (Cockcroft-Gault) 115.5 142.6 BUN/Creatinine Ratio 22 (6-20) Glucose Level 94 mg/dL (70-99) 108 mg/dL (70-99) Calcium Level 9.7 mg/dL (8.5-10.1) 8.2 mg/dL (8.5-10.1) Total Bilirubin 0.2 mg/dL (0.2-1.0) Aspartate Amino Transf (AST/SGOT) 22 U/L (15-37) Alanine Aminotransferase (ALT/SGPT) 12 U/L (14-59) Alkaline Phosphatase 67 U/L (46-116) Troponin I Quantitative < 0.017 ng/mL (0.000-0.055) LD-Dbf-V-Type Natriuretic Peptide 329 pg/mL (0-449) Total Protein 9.4 g/dL (6.4-8.2) Albumin 3.2 g/dL (3.4-5.0) Albumin/Globulin Ratio 0.5 (1.0-1.7) Thyroid Stimulating Hormone (TSH) 2.169 uIU/mL (0.358-3.74) Plan Plan 1. acute hypoxic respiratory failure 2. pneumonia suspect gram neg gram positive 3. goiter with h/o ablation 4. anemia chronic disease 5. elevated BP PLAN: acute hypoxic respiratory failure pneumonia pulmonary consult Zithromax 500mg IV daily; Rocephin 1gm IV daily nebulizer mucinex with DM O2 supplementation elevate BP monitor anemia CD check FE B12 and folate h/o lymphoma with chemo h/o thyroid goiter TSH 2.169 DVT/GI prophylaxis SCD/BARRERA PPI For more details regarding further plans, please refer to the orders. JUDITH PARKS MD 10/11/16 0921: HISTORY AND PHYSICAL Plan Plan ? Atypical pneumonia. Thyroid goiter- patient states that she had thyroid surgery 5 years ago. The patient was seen and examined by me. Chart reviewed and plan of care formulated. Discussed with, reviewed and agree with FULLING MACHINE OPERATOR's notes, plan of care and orders with modifications as necessary. For more details regarding further plans, please refer to the orders. KIN RIVERA APRN October 11, 2016 08:03 JUDITH PARKS MD October 11, 2016 09:21
[2016-10-11 08:24] LABS: % SAT IRON 27 % (15-34); IRON,SERUM 51 ug/dL (50-170)
--- NOTE | 2016-10-11 09:06 | RAD ---
Examination: 2 views of the chest History: History of cough, chest pain for one week Comparison: 11/29/2012 Findings: The cardiomediastinal silhouette demonstrates mild cardiomegaly. Diffuse patchy airspace opacities identified in the bilateral lungs. There is a opacity identified in the right and left paratracheal region. Mild prominent appearing diffuse bilateral interstitial lung markings likely chronic interstitial changes. Moderate degenerative changes present spine. Impression: 1. Diffuse patchy airspace opacities identified in the bilateral lungs likely atelectasis or infiltrates. 2. Opacity identified in the right and left paratracheal region probably enlarged thyroid or lymphadenopathy.
[2016-10-11 09:08] LABS: FOLATE 14.7 ng/ml (3.2-20.0)
[2016-10-11] MEDS: guaiFENesin DM 600/30MG 1 TAB TAB.ER.12H PO SCH ×2 (09:26→21:16)
[2016-10-11 10:50] VITALS: BP 159/68
[2016-10-11] MEDS: IV NORMAL SALINE 1000ML BAG 1,000 ML IV SCH ×2 (11:30→21:05)
--- NOTE | 2016-10-11 12:15 | PDOC ---
Provider Note Provider Note dictated GRETA VOGT MD October 11, 2016 12:15
--- NOTE | 2016-10-11 12:48 | RAD ---
Thyroid ultrasound, 10/11/2016: History: Left neck mass The given history is that of previous thyroid surgery with resection of the right lobe. There is a large soft tissue mass in the expected region of the left lobe. It is solid and heterogeneous with internal vascularity. It measures approximately 8.2 cm in greatest diameter on the ultrasound exam. This mass was also evident on yesterday's CT study as well as an old CT exam from 10/27/2012. Comparison of the CT studies does not suggest significant interval enlargement. The trachea is deviated to the right of midline. IMPRESSION: Large, solid left thyroid mass showing no definite change since 10/27/2012. 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
--- NOTE | 2016-10-11 12:59 | CONS ---
DATE OF CONSULTATION: ATTENDING PHYSICIAN: Dr. Felicitas Baker. REASON FOR CONSULTATION: Pneumonia, abnormal CT chest. HISTORY OF PRESENT ILLNESS: The patient is an 81-year-old -[place] female with no significant history of tobacco use. She has history of thyroid mass related to goiter and had been ablated in the past. The last CT was in 2013. At that time, she did have a left thyroid mass. The patient presented to the hospital complaining of cough productive of thick yellow sputum. She has some shortness of breath although she is on room air and feels comfortable. She does have a cough ____ as well. Her saturations were 89%-95%. She had a CT chest which was performed and was reviewed by me. There are faint bilateral upper lobe infiltrates. The patient also has a large soft tissue density in the left paratracheal region consistent with thyroid mass. Ultrasound of the thyroid has been done and report is pending. I have been asked to see her for further evaluation. PAST MEDICAL HISTORY: History of pneumonia, history of anemia, history of lymphoma in 2013, treated with chemo, history of goiter with tracheal deviation to the right. PAST SURGICAL HISTORY: Hysterectomy. No recent surgeries. FAMILY HISTORY: Glaucoma. SOCIAL HISTORY: No history of tobacco use. ALLERGIES: None. MEDICATIONS: Reviewed as listed in the MRAD. REVIEW OF SYSTEMS: Twelve-point system obtained. Pertinent positives discussed in history of present illness, otherwise noncontributory. All systems that were negative were reviewed as well. PHYSICAL EXAMINATION: VITAL SIGNS: Blood pressure is 159/68, afebrile, and pulse ox 95% on room air. NECK: Supple. Shows some fullness in the left neck area. LUNGS: Diminished breath sounds. CARDIOVASCULAR: Regular rate and rhythm. ABDOMEN: Soft. EXTREMITIES: With no pitting edema. LABORATORY DATA: Reviewed. White cell count 4.2, hemoglobin 11.8, and platelets are 223. BUN is 10 and creatinine 0.5. IMPRESSION: 1. Upper lobe pneumonia, suspect community acquired. 2. History of large goiter with ablation. Now, she has a persistent mass seen on the CT neck, which appears to be a thyroid mass; however, with her history of a history of lymphoma that could be another possibility. She was treated with chemo. 3. Rule out silent aspiration. 4. Dysphagia, may be caused by large neck mass causing some esophageal compression. Needs to rule out aspiration as well. RECOMMENDATIONS: 1. Aspiration precaution. 2. Speech evaluation. 3. Continue antibiotics. 4. Ultrasound of the thyroid and further recommendation per PCP/surgery if needed. 5. Follow oncology recommendation and review old records of her lymphoma. GRETA VOGT MD DR: YUDELKA/shavon JOB#: [id number] / [id number] TERE
[2016-10-11 14:55] VITALS: BP 135/66
[2016-10-11 19:20] VITALS: BP 126/60
[2016-10-11] MEDS: CEFTRIAXONE SODIUM IV SCH (21:16)
[2016-10-11] MEDS: NORMAL SALINE IV SCH (21:16)
[2016-10-11] MEDS: MECLIZINE HCL 12.5 MG TABLET. PO PRN (21:18)
[2016-10-11] MEDS: AZITHROMYCIN 500 MG in IV NORMAL SALINE 250ML 250 ML IV SCH (22:42)
[2016-10-11 23:00] VITALS: BP 160/99
[2016-10-12 05:42] LABS: BASO % 1 % (0-3); EOS % 3 % (0-3); HEMATOCRIT 32.9 % (36.0-47.0); HEMOGLOBIN 10.9 g/dL (12.0-15.5); LYMPH % 40 % (24-48); MEAN CORPUSCULAR HEMOGLOBIN 30 pg (25-35); MEAN CORPUSCULAR HGB CONC 33 g/dL (31-37); MEAN CORPUSCULAR VOLUME 91 fL (79-100); MONO % 10 % (0-9); NEUT % 47 % (31-73); PLATELET COUNT 221 x10^3/uL (140-400); RED BLOOD COUNT 3.63 x10^6/uL (3.50-5.40); RED CELL DISTRIBUTION WIDTH 14.2 % (11.5-14.5)
[2016-10-12 05:59] LABS: CALCIUM 8.1 mg/dL (8.5-10.1); CREATININE 0.5 mg/dL (0.6-1.0); GFR 142.6; MAGNESIUM 1.7 mg/dL (1.8-2.4); POTASSIUM 4.1 mmol/L (3.5-5.1)
[2016-10-12 07:00] VITALS: BP 159/87
[2016-10-12] MEDS: IPRATRPIUM/ALBUTEROL 0.5/2.5MG 3 ML NEBU. NEB SCH ×4 (07:35→20:09)
[2016-10-12] MEDS: guaiFENesin DM 600/30MG 1 TAB TAB.ER.12H PO SCH ×2 (09:31→20:14)
--- NOTE | 2016-10-12 09:52 | PDOC ---
PULMONARY PROGRESS NOTES Subjective still coughing Vitals Vital Signs Date Time Temp Pulse Resp B/P (MAP) Pulse Ox O2 Delivery O2 Flow Rate FiO2 10/12/16 07:36 Room Air 10/12/16 07:00 97.8 80 18 159/87 (111) 95 97.8 General: Alert, No acute distress Lungs: Clear Cardiovascular: S1 Abdomen: Soft Neuro Exam: Alert Extremities: No Edema Skin: Warm Labs Laboratory Tests Test 10/10/16 16:50 10/11/16 04:09 10/12/16 04:30 White Blood Count 4.5 x10^3/uL (4.0-11.0) 4.2 x10^3/uL (4.0-11.0) 5.0 x10^3/uL (4.0-11.0) Red Blood Count 3.86 x10^6/uL (3.50-5.40) 3.75 x10^6/uL (3.50-5.40) 3.63 x10^6/uL (3.50-5.40) Hemoglobin 11.7 g/dL (12.0-15.5) 11.3 g/dL (12.0-15.5) 10.9 g/dL (12.0-15.5) Hematocrit 34.7 % (36.0-47.0) 33.7 % (36.0-47.0) 32.9 % (36.0-47.0) Mean Corpuscular Volume 90 fL (79-100) 90 fL (79-100) 91 fL (79-100) Mean Corpuscular Hemoglobin 30 pg (25-35) 30 pg (25-35) 30 pg (25-35) Mean Corpuscular Hemoglobin Concent 34 g/dL (31-37) 34 g/dL (31-37) 33 g/dL (31-37) Red Cell Distribution Width 13.9 % (11.5-14.5) 14.0 % (11.5-14.5) 14.2 % (11.5-14.5) Platelet Count 240 x10^3/uL (140-400) 223 x10^3/uL (140-400) 221 x10^3/uL (140-400) Neutrophils (%) (Auto) 35 % (31-73) 41 % (31-73) 47 % (31-73) Lymphocytes (%) (Auto) 48 % (24-48) 45 % (24-48) 40 % (24-48) Monocytes (%) (Auto) 10 % (0-9) 10 % (0-9) 10 % (0-9) Eosinophils (%) (Auto) 6 % (0-3) 3 % (0-3) 3 % (0-3) Basophils (%) (Auto) 1 % (0-3) 1 % (0-3) 1 % (0-3) Neutrophils # (Auto) 1.6 x10^3uL (1.8-7.7) 1.7 x10^3uL (1.8-7.7) 2.4 x10^3uL (1.8-7.7) Lymphocytes # (Auto) 2.2 x10^3/uL (1.0-4.8) 1.9 x10^3/uL (1.0-4.8) 2.0 x10^3/uL (1.0-4.8) Monocytes # (Auto) 0.5 x10^3/uL (0.0-1.1) 0.4 x10^3/uL (0.0-1.1) 0.5 x10^3/uL (0.0-1.1) Eosinophils # (Auto) 0.2 x10^3/uL (0.0-0.7) 0.1 x10^3/uL (0.0-0.7) 0.1 x10^3/uL (0.0-0.7) Basophils # (Auto) 0.0 x10^3/uL (0.0-0.2) 0.0 x10^3/uL (0.0-0.2) 0.0 x10^3/uL (0.0-0.2) Sodium Level 139 mmol/L (136-145) 138 mmol/L (136-145) 139 mmol/L (136-145) Potassium Level 3.6 mmol/L (3.5-5.1) 3.8 mmol/L (3.5-5.1) 4.1 mmol/L (3.5-5.1) Chloride Level 102 mmol/L (98-107) 103 mmol/L (98-107) 105 mmol/L (98-107) Carbon Dioxide Level 34 mmol/L (21-32) 30 mmol/L (21-32) 28 mmol/L (21-32) Anion Gap 3 (6-14) 5 (6-14) 6 (6-14) Blood Urea Nitrogen 13 mg/dL (7-20) 10 mg/dL (7-20) 7 mg/dL (7-20) Creatinine 0.6 mg/dL (0.6-1.0) 0.5 mg/dL (0.6-1.0) 0.5 mg/dL (0.6-1.0) Estimated GFR (Cockcroft-Gault) 115.5 142.6 142.6 BUN/Creatinine Ratio 22 (6-20) Glucose Level 94 mg/dL (70-99) 108 mg/dL (70-99) 92 mg/dL (70-99) Calcium Level 9.7 mg/dL (8.5-10.1) 8.2 mg/dL (8.5-10.1) 8.1 mg/dL (8.5-10.1) Total Bilirubin 0.2 mg/dL (0.2-1.0) Aspartate Amino Transf (AST/SGOT) 22 U/L (15-37) Alanine Aminotransferase (ALT/SGPT) 12 U/L (14-59) Alkaline Phosphatase 67 U/L (46-116) Troponin I Quantitative < 0.017 ng/mL (0.000-0.055) LY-Tsh-N-Type Natriuretic Peptide 329 pg/mL (0-449) Total Protein 9.4 g/dL (6.4-8.2) Albumin 3.2 g/dL (3.4-5.0) Albumin/Globulin Ratio 0.5 (1.0-1.7) Thyroid Stimulating Hormone (TSH) 2.169 uIU/mL (0.358-3.74) Iron Level 51 ug/dL (50-170) Total Iron Binding Capacity 190 ug/dL (250-450) Iron Saturation 27 % (15-34) Vitamin B12 Level 1483 pg/mL (247-911) Serum Folate 14.70 ng/ml (3.2-20.0) Magnesium Level 1.7 mg/dL (1.8-2.4) Laboratory Tests Test 10/12/16 04:30 White Blood Count 5.0 x10^3/uL (4.0-11.0) Red Blood Count 3.63 x10^6/uL (3.50-5.40) Hemoglobin 10.9 g/dL (12.0-15.5) Hematocrit 32.9 % (36.0-47.0) Mean Corpuscular Volume 91 fL (79-100) Mean Corpuscular Hemoglobin 30 pg (25-35) Mean Corpuscular Hemoglobin Concent 33 g/dL (31-37) Red Cell Distribution Width 14.2 % (11.5-14.5) Platelet Count 221 x10^3/uL (140-400) Neutrophils (%) (Auto) 47 % (31-73) Lymphocytes (%) (Auto) 40 % (24-48) Monocytes (%) (Auto) 10 % (0-9) Eosinophils (%) (Auto) 3 % (0-3) Basophils (%) (Auto) 1 % (0-3) Neutrophils # (Auto) 2.4 x10^3uL (1.8-7.7) Lymphocytes # (Auto) 2.0 x10^3/uL (1.0-4.8) Monocytes # (Auto) 0.5 x10^3/uL (0.0-1.1) Eosinophils # (Auto) 0.1 x10^3/uL (0.0-0.7) Basophils # (Auto) 0.0 x10^3/uL (0.0-0.2) Sodium Level 139 mmol/L (136-145) Potassium Level 4.1 mmol/L (3.5-5.1) Chloride Level 105 mmol/L (98-107) Carbon Dioxide Level 28 mmol/L (21-32) Anion Gap 6 (6-14) Blood Urea Nitrogen 7 mg/dL (7-20) Creatinine 0.5 mg/dL (0.6-1.0) Estimated GFR (Cockcroft-Gault) 142.6 Glucose Level 92 mg/dL (70-99) Calcium Level 8.1 mg/dL (8.5-10.1) Magnesium Level 1.7 mg/dL (1.8-2.4) Medications Active Scripts Medications Dose Route/Sig Max Daily Dose Days Date Category [Albuterol Inhaler] PRN 10/10/16 Reported [Motion Sickness Med] PO DAILY 10/10/16 Reported Impression . 1. Upper lobe pneumonia, suspect community acquired.? aspiration 2. History of large goiter with ablation. Now, she has a persistent mass seen on the CT neck, which appears to be a thyroid mass; however, with her history of a history of lymphoma that could be another possibility. US with large left thyroid mass 3. Rule out silent aspiration. 4. Dysphagia, may be caused by large neck mass causing some esophageal compression. Needs to rule out aspiration as well. Plan . 1. Aspiration precaution. 2. Speech evaluation. 3. Continue antibiotics. 4. recommendation per PCP/surgery if needed.for thyroid mass 5. Follow oncology recommendation and review old records of her lymphoma. GRETA VOGT MD October 12, 2016 09:52
[2016-10-12] MEDS: ENOXAPARIN 40 MG/0.4 ML SYRINGE. SQ SCH (10:00)
--- NOTE | 2016-10-12 10:24 | PDOC ---
PROGRESS NOTES Subjective Subjective c/o difficulty in swallowing Objective Objective Vital Signs Date Time Temp Pulse Resp B/P (MAP) Pulse Ox O2 Delivery O2 Flow Rate FiO2 10/12/16 07:36 Room Air 10/12/16 07:00 97.8 80 18 159/87 (111) 95 97.8 Intake and Output 10/12/16 07:00 Intake Total 3590 ml Output Total 2 ml Balance 3588 ml Intake Oral 1400 ml IV Total 2190 ml Output Urine/Stool Mix 2 ml # Voids 3 # Bowel Movements 1 Physical Exam Abdomen: Normal bowel sounds, Soft Heart: Regular rate, Normal S1 Extremities: No clubbing General: Alert HEENT: Atraumatic Lungs: Clear to auscultation MUSCULOSKELETAL: No deformity Neck: Supple Neuro: Normal gait Psych/Mental Status: Mental status NL Skin: No breakdown Diagnosis Problem List Problems Medical Problems: (1) Community acquired pneumonia Status: Acute Assessment Assessment Problems Medical Problems: (1) Community acquired pneumonia Status: Acute Plan 1. acute hypoxic respiratory failure 2. pneumonia suspect gram neg gram positive 3. goiter with h/o needle biopsy 4. anemia chronic disease 5. elevated BP PLAN:surgical consult. speech consult swallow study acute hypoxic respiratory failure pneumonia pulmonary consult Zithromax 500mg IV daily; Rocephin 1gm IV daily nebulizer mucinex with DM O2 supplementation. Problems: Plan Plan of Care Problems Medical Problems: (1) Community acquired pneumonia Status: Acute Comment Review of Relevant I have reviewed the following items sammy (where applicable) has been applied. Labs Laboratory Tests Test 10/12/16 04:30 White Blood Count 5.0 x10^3/uL (4.0-11.0) Red Blood Count 3.63 x10^6/uL (3.50-5.40) Hemoglobin 10.9 g/dL (12.0-15.5) Hematocrit 32.9 % (36.0-47.0) Mean Corpuscular Volume 91 fL (79-100) Mean Corpuscular Hemoglobin 30 pg (25-35) Mean Corpuscular Hemoglobin Concent 33 g/dL (31-37) Red Cell Distribution Width 14.2 % (11.5-14.5) Platelet Count 221 x10^3/uL (140-400) Neutrophils (%) (Auto) 47 % (31-73) Lymphocytes (%) (Auto) 40 % (24-48) Monocytes (%) (Auto) 10 % (0-9) Eosinophils (%) (Auto) 3 % (0-3) Basophils (%) (Auto) 1 % (0-3) Neutrophils # (Auto) 2.4 x10^3uL (1.8-7.7) Lymphocytes # (Auto) 2.0 x10^3/uL (1.0-4.8) Monocytes # (Auto) 0.5 x10^3/uL (0.0-1.1) Eosinophils # (Auto) 0.1 x10^3/uL (0.0-0.7) Basophils # (Auto) 0.0 x10^3/uL (0.0-0.2) Sodium Level 139 mmol/L (136-145) Potassium Level 4.1 mmol/L (3.5-5.1) Chloride Level 105 mmol/L (98-107) Carbon Dioxide Level 28 mmol/L (21-32) Anion Gap 6 (6-14) Blood Urea Nitrogen 7 mg/dL (7-20) Creatinine 0.5 mg/dL (0.6-1.0) Estimated GFR (Cockcroft-Gault) 142.6 Glucose Level 92 mg/dL (70-99) Calcium Level 8.1 mg/dL (8.5-10.1) Magnesium Level 1.7 mg/dL (1.8-2.4) Medications Current Medications Azithromycin (Zithromax) 250 mg DAILY PO ; Start 10/14/16 at 09:00 Azithromycin 500 mg/Sodium Chloride 250 ml @ 250 mls/hr Q24H IV Last administered on 10/11/16 22:42; Start 10/11/16 at 19:30; Stop 10/13/16 at 19:29 Ceftriaxone Sodium 1 gm/ Sodium Chloride 50 ml @ 100 mls/hr Q24H IV Last administered on 10/11/16 21:16; Start 10/11/16 at 19:30 Enoxaparin Sodium (Lovenox 40mg Syringe) 40 mg Q24H SQ ; Start 10/12/16 at 10:00 Vitals/I & O Vital Sign - Last 24 Hours 10/11/16 10/11/16 10/11/16 10/11/16 10:50 11:45 14:55 17:02 Temp 97.8 97.8 97.8 97.8 Pulse 70 95 Resp 20 20 B/P (MAP) 159/68 (98) 135/66 (89) Pulse Ox 95 92 98 O2 Delivery Room Air Room Air Room Air Room Air 10/11/16 10/11/16 10/11/16 10/11/16 19:20 20:00 20:28 23:00 Temp 98.5 97.9 98.5 97.9 Pulse 89 90 Resp 18 18 B/P (MAP) 126/60 (82) 160/99 (119) Pulse Ox 95 100 96 O2 Delivery Room Air Room Air Room Air 10/12/16 10/12/16 10/12/16 03:00 07:00 07:36 Temp 97.8 97.8 Pulse 80 Resp 18 B/P (MAP) 159/87 (111) Pulse Ox 95 O2 Delivery Room Air Room Air Intake and Output 10/11/16 10/11/16 10/12/16 15:00 23:00 07:00 Intake Total 1390 ml 950 ml 1250 ml Output Total 2 ml Balance 1390 ml 950 ml 1248 ml JUDY WELCH MD October 12, 2016 10:24
[2016-10-12 11:00] VITALS: BP 149/72
[2016-10-12 14:58] VITALS: BP 150/69
--- NOTE | 2016-10-12 16:00 | RAD ---
Chest, 2 views, 10/12/2016: History: Follow-up pneumonia Comparison is made to a study from 10/10/2016. The heart is enlarged. There is unchanged mediastinal prominence on the left at the thoracic inlet, probably due to a thyroid mass. There are underlying streaky infiltrates, primarily in the suprahilar regions bilaterally. These are unchanged. No new pulmonary abnormality is seen. There is no evidence of pleural fluid. The bony structures are demineralized. Scattered spurs are present in the spine. IMPRESSION: 1. Cardiomegaly. 2. Unchanged bilateral upper lobe infiltrate suggesting pneumonia. A component of scarring cannot be excluded.
[2016-10-12 19:00] VITALS: BP 156/91
[2016-10-12] MEDS: CEFTRIAXONE SODIUM IV SCH (20:11)
[2016-10-12] MEDS: MECLIZINE HCL 12.5 MG TABLET. PO PRN (20:11)
[2016-10-12] MEDS: IV NORMAL SALINE 1000ML BAG 1,000 ML IV SCH (20:11)
[2016-10-12] MEDS: NORMAL SALINE IV SCH (20:11)
[2016-10-12] MEDS: AZITHROMYCIN 500 MG in IV NORMAL SALINE 250ML 250 ML IV SCH (21:29)
[2016-10-12 23:00] VITALS: BP 175/92
[2016-10-13 03:00] VITALS: BP 167/90
[2016-10-13 07:00] VITALS: BP 167/85
[2016-10-13] MEDS: IPRATRPIUM/ALBUTEROL 0.5/2.5MG 3 ML NEBU. NEB SCH ×4 (07:04→20:45)
[2016-10-13] MEDS: guaiFENesin DM 600/30MG 1 TAB TAB.ER.12H PO SCH ×2 (08:17→21:25)
--- NOTE | 2016-10-13 09:20 | PDOC2 ---
GLORY MCCOLLUM [employer] 10/13/16 0920: CONSULT Date of Consult Date of Consult DATE: 10/13/16 TIME: 09:13 Reason for Consult Reason for Consult: thyroid mass Referring Physician Referring Physician: Dr Baker Identification/Chief Complaint Chief Complaint dysphagia Source Source: Chart review, Patient History of Present Illness Reason for Visit: Admitted with cough and dysphagia. 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 ) Past Surgical History Past Surgical History: Hysterectomy Family History Family History: Other (glaucoma ) Social History No ALCOHOL: none Drugs: None Lives: Alone Current Problem List Problem List Problems Medical Problems: (1) Community acquired pneumonia Status: Acute Current Medications Current Medications Current Medications Albuterol/ Ipratropium (Duoneb) 3 ml 1X ONCE NEB Last administered on 16:41; Start 10/10/16 at 16:30; Stop 10/10/16 at 16:33; Status DC Iohexol (Omnipaque 300 Mg/ml) 75 ml 1X ONCE IV Last administered on 10/10/16 18:26; Start 10/10/16 at 18:00; Stop 10/10/16 at 18:01; Status DC Info (Do NOT chart on this entry -- for MONITORING) 1 each PRN DAILY PRN MC SEE COMMENTS; Start 10/10/16 at 18:00; Stop 10/12/16 at 17:59; Status DC Ceftriaxone Sodium 1 gm/ Sodium Chloride 50 ml @ 100 mls/hr Q24H IV Last administered on 10/12/16 20:11; Start 10/11/16 at 19:30 Azithromycin 500 mg/Sodium Chloride 250 ml @ 250 mls/hr Q24H IV Last administered on 10/12/16 21:29; Start 10/11/16 at 19:30; Stop 10/13/16 at 19:29 Azithromycin 250 ml @ 250 mls/hr 1X ONCE IV Last administered on 10/10/16 21 :35; Start 10/10/16 at 19:30; Stop 10/10/16 at 20:29; Status DC Ceftriaxone Sodium 50 ml @ 100 mls/hr 1X ONCE IV Last administered on 19:28; Start 10/10/16 at 19:30; Stop 10/10/16 at 19:59; Status DC Ondansetron HCl (Zofran) 4 mg PRN Q8HRS PRN IV NAUSEA/VOMITING; Start 10/10/16 at 20:30; Stop 10/11/16 at 07:36; Status DC Sodium Chloride 1,000 ml @ 75 mls/hr [id number] IV Last administered on 21:19; Start 10/10/16 at 20:19; Stop 10/11/16 at 07:36; Status DC Acetaminophen (Tylenol) 650 mg PRN Q4HRS PRN PO FEVER; Start 10/10/16 at 20:30 ; Stop 10/11/16 at 07:36; Status DC Albuterol/ Ipratropium (Duoneb) 3 ml RTQID NEB ; Start 10/11/16 at 08:00; Stop 10/11/16 at 08:00; Status DC Guaifenesin (Robitussin Dm) 5 ml PRN Q4HRS PRN PO COUGH Last administered on 03:04; Start 10/10/16 at 23:15; Stop 10/11/16 at 07:36; Status DC Sodium Chloride 1,000 ml @ 75 mls/hr [id number] IV Last administered on 20:11; Start 10/11/16 at 07:45 Albuterol/ Ipratropium (Duoneb) 3 ml RTQID NEB Last administered on 10/13/16 07:04; Start 10/11/16 at 08:00 Ondansetron HCl (Zofran) 4 mg PRN Q8HRS PRN IV NAUSEA/VOMITING; Start 10/11/16 at 07:45 Acetaminophen (Tylenol) 650 mg PRN Q4HRS PRN PO FEVER Last administered on 10/12 00:51; Start 10/11/16 at 07:45 Guaifenesin (MUCINEX ER with DM) 1 tab BID PO Last administered on 10/13/16 08 :17; Start 10/11/16 at 09:00 Meclizine HCl (Antivert) 12.5 mg PRN Q6HRS PRN PO DIZZINESS Last administered on 10/12/16 20:11; Start 10/11/16 at 08:00 Azithromycin (Zithromax) 250 mg DAILY PO ; Start 10/14/16 at 09:00 Enoxaparin Sodium (Lovenox 40mg Syringe) 40 mg Q24H SQ ; Start 10/12/16 at 10:00 Active Scripts Active Reported [Albuterol Inhaler] PRN [Motion Sickness Med] PO DAILY Allergies Allergies: Coded Allergies: No Known Drug Allergies (Unverified , 10/10/16) ROS General: No: Chills, Other (fevers) PSYCHOLOGICAL ROS: No: Anxiety, Depression Eyes: No Blurry vision, No Double vision HEENT: No: Heacaches, Sore Throat Hematological and Lymphatic: No: Bleeding Problems, Blood Clots Respiratory: YES: Cough, Shortness of breath Cardiovascular: No Chest Pain, No Palpitations Gastrointestinal: No Nausea, No Vomiting Genitourinary: No Dysuria, No Hematuria Musculoskeletal: No Joint Pain, No Muscle Pain Neurological: No Impaired Coord/balance, No Numbness/Tingling Skin: No Pruritus, No Rash Physical Exam General: Alert, Oriented X3, Cooperative, No acute distress HEENT: Other (fullnees to left side of neck, tracheal deviation to right ) Lungs: Clear to auscultation, Normal air movement Heart: Regular rate, Normal S1, Normal S2 Abdomen: Soft, No tenderness Extremities: No clubbing, No cyanosis Skin: No rashes, No breakdown Neuro: Normal speech, Sensation intact Psych/Mental Status: Mental status NL, Mood NL MUSCULOSKELETAL: No deformity, No swelling Vitals VITALS Vital Signs Date Time Temp Pulse Resp B/P (MAP) Pulse Ox O2 Delivery O2 Flow Rate FiO2 10/13/16 07:07 94 Room Air 10/13/16 07:00 98.1 90 16 167/85 (112) 98.1 Labs Labs Laboratory Tests Test 10/12/16 04:30 White Blood Count 5.0 x10^3/uL (4.0-11.0) Red Blood Count 3.63 x10^6/uL (3.50-5.40) Hemoglobin 10.9 g/dL (12.0-15.5) Hematocrit 32.9 % (36.0-47.0) Mean Corpuscular Volume 91 fL (79-100) Mean Corpuscular Hemoglobin 30 pg (25-35) Mean Corpuscular Hemoglobin Concent 33 g/dL (31-37) Red Cell Distribution Width 14.2 % (11.5-14.5) Platelet Count 221 x10^3/uL (140-400) Neutrophils (%) (Auto) 47 % (31-73) Lymphocytes (%) (Auto) 40 % (24-48) Monocytes (%) (Auto) 10 % (0-9) Eosinophils (%) (Auto) 3 % (0-3) Basophils (%) (Auto) 1 % (0-3) Neutrophils # (Auto) 2.4 x10^3uL (1.8-7.7) Lymphocytes # (Auto) 2.0 x10^3/uL (1.0-4.8) Monocytes # (Auto) 0.5 x10^3/uL (0.0-1.1) Eosinophils # (Auto) 0.1 x10^3/uL (0.0-0.7) Basophils # (Auto) 0.0 x10^3/uL (0.0-0.2) Sodium Level 139 mmol/L (136-145) Potassium Level 4.1 mmol/L (3.5-5.1) Chloride Level 105 mmol/L (98-107) Carbon Dioxide Level 28 mmol/L (21-32) Anion Gap 6 (6-14) Blood Urea Nitrogen 7 mg/dL (7-20) Creatinine 0.5 mg/dL (0.6-1.0) Estimated GFR (Cockcroft-Gault) 142.6 Glucose Level 92 mg/dL (70-99) Calcium Level 8.1 mg/dL (8.5-10.1) Magnesium Level 1.7 mg/dL (1.8-2.4) Assessment/Plan Assessment/Plan thyroid mass, 8 cm, with tracheal deviation dysphagia and pneumonia concern for esophageal compression Video swallow pending today will have Dr Riley jha and discuss any potential thyroidectomy again REED BALLESTEROS MD 10/13/16 1120: CONSULT Allergies Allergies: Coded Allergies: No Known Drug Allergies (Unverified , 10/10/16) Assessment/Plan Assessment/Plan pt seen, interviewed and examined family at bedside I know Ms Cooper from previous evaluation some years ago. she declined surgical intervention then swallow study PND await those results before making any surgical recs will follow with you Thanks for consult GLORY MCCOLLUM APRN October 13, 2016 09:20 REED BALLESTEROS MD October 13, 2016 11:20
--- NOTE | 2016-10-13 10:11 | PDOC ---
PULMONARY PROGRESS NOTES Subjective still coughing Vitals Vital Signs Date Time Temp Pulse Resp B/P (MAP) Pulse Ox O2 Delivery O2 Flow Rate FiO2 10/13/16 08:00 Room Air 10/13/16 07:07 94 10/13/16 07:00 98.1 90 16 167/85 (112) 98.1 General: Alert, No acute distress Lungs: Clear Cardiovascular: S1 Abdomen: Soft Neuro Exam: Alert Extremities: No Edema Skin: Warm Labs Laboratory Tests Test 10/12/16 04:30 White Blood Count 5.0 x10^3/uL (4.0-11.0) Red Blood Count 3.63 x10^6/uL (3.50-5.40) Hemoglobin 10.9 g/dL (12.0-15.5) Hematocrit 32.9 % (36.0-47.0) Mean Corpuscular Volume 91 fL (79-100) Mean Corpuscular Hemoglobin 30 pg (25-35) Mean Corpuscular Hemoglobin Concent 33 g/dL (31-37) Red Cell Distribution Width 14.2 % (11.5-14.5) Platelet Count 221 x10^3/uL (140-400) Neutrophils (%) (Auto) 47 % (31-73) Lymphocytes (%) (Auto) 40 % (24-48) Monocytes (%) (Auto) 10 % (0-9) Eosinophils (%) (Auto) 3 % (0-3) Basophils (%) (Auto) 1 % (0-3) Neutrophils # (Auto) 2.4 x10^3uL (1.8-7.7) Lymphocytes # (Auto) 2.0 x10^3/uL (1.0-4.8) Monocytes # (Auto) 0.5 x10^3/uL (0.0-1.1) Eosinophils # (Auto) 0.1 x10^3/uL (0.0-0.7) Basophils # (Auto) 0.0 x10^3/uL (0.0-0.2) Sodium Level 139 mmol/L (136-145) Potassium Level 4.1 mmol/L (3.5-5.1) Chloride Level 105 mmol/L (98-107) Carbon Dioxide Level 28 mmol/L (21-32) Anion Gap 6 (6-14) Blood Urea Nitrogen 7 mg/dL (7-20) Creatinine 0.5 mg/dL (0.6-1.0) Estimated GFR (Cockcroft-Gault) 142.6 Glucose Level 92 mg/dL (70-99) Calcium Level 8.1 mg/dL (8.5-10.1) Magnesium Level 1.7 mg/dL (1.8-2.4) Medications Active Scripts Medications Dose Route/Sig Max Daily Dose Days Date Category [Albuterol Inhaler] PRN 10/10/16 Reported [Motion Sickness Med] PO DAILY 10/10/16 Reported Impression . 1. Upper lobe pneumonia, suspect community acquired.? aspiration 2. History of large goiter with ablation. Now, she has a persistent mass seen on the CT neck, which appears to be a thyroid mass; however, with her history of a history of lymphoma that could be another possibility. US with large left thyroid mass 3. Rule out silent aspiration. 4. Dysphagia, may be caused by large neck mass causing some esophageal compression. Needs to rule out aspiration as well. Plan . 1. Aspiration precaution. 2. Speech evaluation. 3. Continue antibiotics. 4. recommendation per PCP/surgery .for thyroid mass 5. Follow oncology recommendation and review old records of her lymphoma. GRETA VOGT MD October 13, 2016 10:11
--- NOTE | 2016-10-13 10:17 | PDOC ---
PROGRESS NOTES Subjective Subjective feeling better, less cough Objective Objective Vital Signs Date Time Temp Pulse Resp B/P (MAP) Pulse Ox O2 Delivery O2 Flow Rate FiO2 10/13/16 08:00 Room Air 10/13/16 07:07 94 10/13/16 07:00 98.1 90 16 167/85 (112) 98.1 Intake and Output 10/13/16 07:00 Intake Total 2150 ml Output Total 300 ml Balance 1850 ml Intake Oral 1100 ml IV Total 1050 ml Output Urine Total 300 ml # Voids 6 Physical Exam Abdomen: Soft, No tenderness Heart: Regular rate, Normal S1, Normal S2 Extremities: No clubbing, No cyanosis General: Alert, Oriented X3, Cooperative, No acute distress HEENT: Other (fullnees to left side of neck, tracheal deviation to right ) Lungs: Clear to auscultation, Normal air movement MUSCULOSKELETAL: No deformity, No swelling Neck: Supple Neuro: Normal speech, Sensation intact Psych/Mental Status: Mental status NL, Mood NL Skin: No rashes, No breakdown Diagnosis Problem List Problems Medical Problems: (1) Community acquired pneumonia Status: Acute Assessment Assessment Problems Medical Problems: (1) Community acquired pneumonia Status: Acute Plan 1. acute hypoxic respiratory failure 2. pneumonia suspect gram neg gram positive 3. goiter with h/o needle biopsy 4. anemia chronic disease 5. elevated BP 6.h/o lymphoma. 7.H/o thyroid mass had radioiodine treatment PLAN:surgical consult. oncology consult speech consult swallow study acute hypoxic respiratory failure pneumonia improving on cxr pulmonary consult Zithromax 500mg IV daily; Rocephin 1gm IV daily nebulizer mucinex with DM O2 supplementation. spoke with daughters at bedside Problems: Plan Plan of Care Problems Medical Problems: (1) Community acquired pneumonia Status: Acute Comment Review of Relevant I have reviewed the following items sammy (where applicable) has been applied. Medications Current Medications Azithromycin (Zithromax) 250 mg DAILY PO ; Start 10/14/16 at 09:00 Vitals/I & O Vital Sign - Last 24 Hours 10/12/16 10/12/16 10/12/16 10/12/16 11:00 11:37 14:58 15:25 Temp 97.8 97.8 97.8 97.8 Pulse 91 90 Resp 18 18 B/P (MAP) 149/72 (97) 150/69 (96) Pulse Ox 93 93 O2 Delivery Room Air Room Air Room Air Room Air 10/12/16 10/12/16 10/12/16 10/12/16 19:00 20:05 20:10 23:00 Temp 98.5 98.6 98.5 98.6 Pulse 96 99 Resp 18 18 B/P (MAP) 156/91 (112) 175/92 (119) Pulse Ox 94 97 94 O2 Delivery Room Air Room Air 10/13/16 10/13/16 10/13/16 10/13/16 03:00 07:00 07:07 08:00 Temp 98.2 98.1 98.2 98.1 Pulse 95 90 Resp 16 16 B/P (MAP) 167/90 (115) 167/85 (112) Pulse Ox 94 93 94 O2 Delivery Room Air Room Air Room Air Room Air Intake and Output 10/12/16 10/12/16 10/13/16 15:00 23:00 07:00 Intake Total 500 ml 1290 ml 360 ml Output Total 300 ml Balance 500 ml 1290 ml 60 ml JUDY WELCH MD October 13, 2016 10:17
[2016-10-13] MEDS: ENOXAPARIN 40 MG/0.4 ML SYRINGE. SQ SCH (10:27)
[2016-10-13] MEDS ORDERED: BARIUM SULFATE 40% (APPLE) 148 GM PWD. PO ONE (10:45)
[2016-10-13] MEDS: IV NORMAL SALINE 1000ML BAG 1,000 ML IV SCH ×2 (11:01→19:42)
[2016-10-13 11:08] VITALS: BP 151/66
--- NOTE | 2016-10-13 11:39 | PDOC ---
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 When last seen in clinic by Dr. Powell 04/11, no records available. Received I131 tx, which is not used for lymphoma. If she did have lymphoma, would have been cured by now with no tx required for several years. No further eval needed.' Thyroid nodule, stable since 10/09- Per surgery. Thank you. CAMILA GALEAS DO October 13, 2016 11:39
--- NOTE | 2016-10-13 13:57 | RAD ---
Video dysphasia study, 10/13/2016: History: Pneumonia, neck mass, possible aspiration The swallowing mechanism was examined fluoroscopically in the lateral projection while the patient ingested a variety of food materials mixed with barium. 2.0 minutes of fluoroscopy time was utilized. One fluoroscopic video loop was recorded by a member of the Speech Department. When ingesting the thin liquids there was prompt initiation of pharyngeal peristalsis. No significant laryngeal penetration or aspiration was observed. There was no significant vallecular or piriform sinus residue. The patient utilized a straw without difficulty. With the thicker materials there was mild intermittent delay in initiation of pharyngeal peristalsis. Again, no significant laryngeal penetration or aspiration was observed. The patient demonstrated a delayed oral phase when ingesting the barium coated solids, apparently due to poor dentition. Once pharyngeal peristalsis was initiated there was normal passage of this material through the cervical esophagus. IMPRESSION: No evidence of aspiration.
[2016-10-13 14:42] VITALS: BP 178/100
[2016-10-13 19:00] VITALS: BP 150/74
[2016-10-13] MEDS: NORMAL SALINE IV SCH (19:42)
[2016-10-13] MEDS: CEFTRIAXONE SODIUM IV SCH (19:42)
[2016-10-13 22:47] VITALS: BP 142/69
--- NOTE | 2016-10-14 01:58 | CONS ---
DATE OF CONSULTATION: 10/13/2016 REFERRING PROVIDER: Felicitas Baker M.D. REASON FOR CONSULTATION: Reported history of lymphoma. HISTORY OF PRESENT ILLNESS: The patient is an 81-year-old female who presented to the hospital with pneumonia. She has been noted to have an 8-cm thyroid mass, actually unchanged from previous imaging in 2012. She reported a history of lymphoma, and therefore, we were consulted. Per review of her previous clinic notes, she last saw Dr. Layne Powell, last in 03/2013. Dr. Powell had actually pulled records from Dr. Davies, whom the patient actually had some form of treatment with. 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 Dr. Powell referred her for rheumatology consult, but it appears that she did not at that time actually make that appointment. Dr. Powell's notes record that in 12/2012 she reported being diagnosed with "lymphoma behind the thyroid." She reported having treatment with Dr. Davies with some form of medication that decreased her white blood count significantly. Dr. Powell actually never had records of that and the patient never required any additional treatment. Her blood counts are now relatively unremarkable with the exception of mild chronic anemia with a hemoglobin around 11. PAST MEDICAL HISTORY: Thyroid mass, vertigo, anemia, goiter, previous I-31 ablation. PAST SURGICAL HISTORY: Hysterectomy and right thyroidectomy. FAMILY HISTORY: Daughter has had breast cancer. The patient's father reportedly had some form of cancer. Brother with a goiter. SOCIAL HISTORY: She has 6 children. She lives with her daughter here in town. No tobacco, alcohol or drug use. ALLERGIES: No known drug allergies. CURRENT MEDICATIONS: Tylenol, DuoNeb, azithromycin, Rocephin, Mucinex, Antivert, Zofran, normal saline. REVIEW OF SYSTEMS: Ten-point review of systems completed and unremarkable with the exception of chest pain, shortness of breath and cough for the last week. She does not chronically have any difficulty swallowing. PHYSICAL EXAMINATION: VITAL SIGNS: Temperature 97.9, pulse 92, respiratory rate 17, blood pressure 151/66, O2 94% on room air. GENERAL: She is alert and oriented, in no distress. She is fatigued and does fall asleep frequently during my exam. HEENT: Thickened neck circumference. New difficulty with her secretions. No scleral icterus present. Mucous membranes are moist. CARDIOVASCULAR: Heart is regular in rhythm and rate. LUNGS: Clear to auscultation bilaterally. ABDOMEN: Soft and nontender. EXTREMITIES: No edema. NEUROLOGIC: No focal deficits. IMAGING AND LABORATORY DATA: Hemoglobin around 11.3, CBC otherwise unremarkable. CMP negative. Iron, folic acid, and TSH have been normal. B12 was actually high near 1500. Neck ultrasound confirmed the 8.2-cm solid heterogenous soft tissue mass in the left lobe of the liver and confirmed a previous resection of the right lobe of the thyroid; this is unchanged from her last imaging in 09/2012. Chest x-ray shows cardiomegaly and bilateral upper lobe infiltrates suggestive of pneumonia. ASSESSMENT AND PLAN: The patient is an 81-year-old female with the following medical problems: 1. Reported history of lymphoma. Last clinic notes were from Dr. Powell in 03/2013 and per review of her previous oncologist, Dr. Davies's notes, we actually could never confirm a diagnosis of lymphoma. Regardless, if she did have it, she has likely been cured as she has not needed any treatment for several years now. 2. An 8.2-cm left thyroid lobe mass. Surgery has been consulted to consider resection. It appears unchanged since imaging 4 years ago. 3. Anemia, likely of chronic disease. Stable. Initial Hematology has been unremarkable. Thank you for allowing me to participate in her care. Please call with any further questions. CAMILA GALEAS DO DR: RUSSELL/shavon JOB#: [id number] / [id number]
[2016-10-14] MEDS: IV NORMAL SALINE 1000ML BAG 1,000 ML IV SCH (02:58)
[2016-10-14 07:00] VITALS: BP 147/87
[2016-10-14] MEDS: IPRATRPIUM/ALBUTEROL 0.5/2.5MG 3 ML NEBU. NEB SCH ×4 (07:51→19:24)
[2016-10-14] MEDS: ENOXAPARIN 40 MG/0.4 ML SYRINGE. SQ SCH (08:33)
[2016-10-14] MEDS: guaiFENesin DM 600/30MG 1 TAB TAB.ER.12H PO SCH ×2 (08:34→20:31)
[2016-10-14] MEDS: AZITHROMYCIN 250 MG TABLET. PO SCH (08:34)
--- NOTE | 2016-10-14 09:42 | PDOC ---
GLORY MCCOLLUM APRN 10/14/16 0942: SURGICAL PROGRESS NOTE Subjective tolerating diet this AM she wants to discuss any surgery with her family today Vital Signs Vital Signs Date Time Temp Pulse Resp B/P (MAP) Pulse Ox O2 Delivery O2 Flow Rate FiO2 10/14/16 07:34 94 Room Air 10/14/16 07:00 97.0 88 24 147/87 (107) 97.0 I&O Intake and Output 10/14/16 07:00 Intake Total 360 ml Balance 360 ml Intake Oral 360 ml # Voids 7 # Bowel Movements 2 General: Alert, Oriented X3, Cooperative, No acute distress HEENT: Other (fullness left neck) Problem List Problems Medical Problems: (1) Community acquired pneumonia Status: Acute Assessment/Plan thyroid mass will have Dr Riley FINE in AM after she discusses with her family Problems: REED BALLESTEROS MD 10/14/16 1056: SURGICAL PROGRESS NOTE Assessment/Plan pt seen and examined as above await decision Problems: GLORY MCCOLLUM APRN October 14, 2016 09:42 REED BALLESTEROS MD October 14, 2016 10:56
--- NOTE | 2016-10-14 10:23 | PDOC ---
PROGRESS NOTES Subjective Subjective feels better,anxious to go home Objective Objective Vital Signs Date Time Temp Pulse Resp B/P (MAP) Pulse Ox O2 Delivery O2 Flow Rate FiO2 10/14/16 08:00 Room Air 10/14/16 07:34 94 10/14/16 07:00 97.0 88 24 147/87 (107) 97.0 Intake and Output 10/14/16 07:00 Intake Total 360 ml Balance 360 ml Intake Oral 360 ml # Voids 7 # Bowel Movements 2 Physical Exam Abdomen: Soft, No tenderness Heart: Regular rate, Normal S1, Normal S2 Extremities: No clubbing, No cyanosis General: Alert, Oriented X3, Cooperative, No acute distress HEENT: Other (fullness left neck) Lungs: Clear to auscultation, Normal air movement MUSCULOSKELETAL: No deformity, No swelling Neck: Supple Neuro: Normal speech, Sensation intact Psych/Mental Status: Mental status NL, Mood NL Skin: No rashes, No breakdown Diagnosis Problem List Problems Medical Problems: (1) Community acquired pneumonia Status: Acute Assessment Assessment Problems Medical Problems: (1) Community acquired pneumonia Status: Acute Plan 1. acute hypoxic respiratory failure 2. pneumonia suspect gram neg gram positive 3. goiter with h/o radio iodine treatment 4. anemia chronic disease 5. elevated BP 6.h/o lymphoma. 7.H/o thyroid mass had radioiodine treatment PLAN: change to po meds today. home tomorrow. surgical consult noted.no surgical plans for now, oncology consult appreciated speech consult noted swallow study neg for aspiration acute hypoxic respiratory failure pneumonia improving on cxr pulmonary consult Zithromax 500mg IV daily; Rocephin 1gm IV daily nebulizer mucinex with DM O2 supplementation. spoke with daughters at bedside Problems: Plan Plan of Care Problems Medical Problems: (1) Community acquired pneumonia Status: Acute Comment Review of Relevant I have reviewed the following items sammy (where applicable) has been applied. Labs Microbiology 10/12/16 Blood Culture - Preliminary, Resulted NO GROWTH AFTER 1 DAY 10/12/16 Gram Stain - Final, Complete Medications Current Medications Azithromycin (Zithromax) 250 mg DAILY PO Last administered on 10/14/16 08:34; Start 10/14/16 at 09:00 Barium Sulfate (Varibar Thin Liquid Apple) 148 gm 1X ONCE PO Last administered on 10/13/16 13:48; Start 10/13/16 at 10:45; Stop 10/13/16 at 10:52 ; Status DC Vitals/I & O Vital Sign - Last 24 Hours 10/13/16 10/13/16 10/13/16 10/13/16 11:06 11:08 14:42 15:00 Temp 97.9 97.5 97.9 97.5 Pulse 92 98 Resp B/P (MAP) 151/66 (94) 178/100 (126) Pulse Ox 94 95 O2 Delivery Room Air Room Air Room Air Room Air 10/13/16 10/13/16 10/13/16 10/13/16 19:00 20:00 20:46 22:47 Temp 98.0 98.2 98.0 98.2 Pulse 95 109 Resp 18 B/P (MAP) 150/74 (99) 142/69 (93) Pulse Ox 96 97 94 O2 Delivery Room Air Room Air Room Air Room Air 10/14/16 10/14/16 10/14/16 07:00 07:34 08:00 Temp 97.0 97.0 Pulse 88 Resp 24 B/P (MAP) 147/87 (107) Pulse Ox 98 94 O2 Delivery Room Air Room Air Room Air Intake and Output 10/13/16 10/13/16 10/14/16 15:00 23:00 07:00 Intake Total 360 ml Balance 360 ml JUDY WELCH MD October 14, 2016 10:23
[2016-10-14] MEDS: CEFPODOXIME PROXETIL 100 MG TABLET. PO SCH ×2 (10:50→20:30)
[2016-10-14 11:00] VITALS: BP 136/78
--- NOTE | 2016-10-14 11:26 | PDOC ---
PULMONARY PROGRESS NOTES Subjective less cough Vitals Vital Signs Date Time Temp Pulse Resp B/P (MAP) Pulse Ox O2 Delivery O2 Flow Rate FiO2 10/14/16 11:02 95 Room Air 10/14/16 07:00 97.0 88 24 147/87 (107) 97.0 General: Alert, No acute distress Lungs: Clear Cardiovascular: S1 Abdomen: Soft Neuro Exam: Alert Extremities: No Edema Skin: Warm Medications Active Scripts Medications Dose Route/Sig Max Daily Dose Days Date Category [Albuterol Inhaler] PRN 10/10/16 Reported [Motion Sickness Med] PO DAILY 10/10/16 Reported Impression . 1. Upper lobe pneumonia, suspect community acquired.? aspiration 2. History of large goiter with ablation. Now, she has a persistent mass seen on the CT neck, which appears to be a thyroid mass; however, with her history of a history of lymphoma that could be another possibility. US with large left thyroid mass 3. Rule out silent aspiration. 4. Dysphagia, may be caused by large neck mass causing some esophageal compression. Needs to rule out aspiration as well. Plan . 1. Aspiration precaution. 2. Speech evaluation. await results. 3. Continue antibiotics. 4. recommendation per PCP/surgery .for thyroid mass 5. Follow oncology recommendation and review old records of her lymphoma. GRETA VOGT MD October 14, 2016 11:26
[2016-10-14 15:00] VITALS: BP 136/82
[2016-10-14 19:00] VITALS: BP 149/86
[2016-10-14] MEDS ORDERED: AZIT250T6 PO (21:30)
[2016-10-14] MEDS ORDERED: CEFP100T PO (21:30)
[2016-10-14 22:45] VITALS: BP 137/72
[2016-10-15 03:00] VITALS: BP 155/80
[2016-10-15 07:00] VITALS: BP 122/62
[2016-10-15] MEDS: IPRATRPIUM/ALBUTEROL 0.5/2.5MG 3 ML NEBU. NEB SCH ×2 (07:33→11:38)
--- NOTE | 2016-10-15 09:20 | PDOC ---
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 Pt/ family confirmed that she received minimal tx from Dr. Davies previously due to significant cytopenias-- I do not have records of this. Without additional sx/ lab issues now, would not pursue additional w/u or tx. Noted plans for conservative mgt of stable thyroid mass. CAMILA GALEAS DO October 15, 2016 09:20
[2016-10-15] MEDS: CEFPODOXIME PROXETIL 100 MG TABLET. PO SCH (09:23)
[2016-10-15] MEDS: guaiFENesin DM 600/30MG 1 TAB TAB.ER.12H PO SCH (09:23)
[2016-10-15] MEDS: AZITHROMYCIN 250 MG TABLET. PO SCH (09:23)
[2016-10-15] MEDS: ENOXAPARIN 40 MG/0.4 ML SYRINGE. SQ SCH (09:24)
--- NOTE | 2016-10-15 09:56 | PDOC ---
PROGRESS NOTES Subjective Subjective feels better ,ready to go home Objective Objective Vital Signs Date Time Temp Pulse Resp B/P (MAP) Pulse Ox O2 Delivery O2 Flow Rate FiO2 10/15/16 07:35 95 Room Air 10/15/16 07:00 97.4 58 18 122/62 (82) 97.4 Intake and Output 10/15/16 07:00 Intake Total 1450 ml Output Total 1000 ml Balance 450 ml Intake Oral 1450 ml Output Urine Total 1000 ml # Voids 5 # Bowel Movements 4 Physical Exam Abdomen: Soft, No tenderness Heart: Regular rate, Normal S1, Normal S2 Extremities: No clubbing, No cyanosis General: Alert, Oriented X3, Cooperative, No acute distress HEENT: Other (fullness left neck) Lungs: Clear to auscultation, Normal air movement MUSCULOSKELETAL: No deformity, No swelling Neck: Supple Neuro: Normal speech, Sensation intact Psych/Mental Status: Mental status NL, Mood NL Skin: No rashes, No breakdown Diagnosis Problem List Problems Medical Problems: (1) Community acquired pneumonia Status: Acute Assessment Assessment Problems Medical Problems: (1) Community acquired pneumonia Status: Acute Plan 1. acute hypoxic respiratory failure 2. pneumonia suspect gram neg gram positive 3. goiter with h/o radio iodine treatment 4. anemia chronic disease 5. 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 sputum gram positive surgical consult noted.no surgical plans for now, oncology consult appreciated speech consult noted swallow study neg for aspiration acute hypoxic respiratory failure pneumonia improving on cxr pulmonary consult po antibiotics for 3 more days Problems: Plan Plan of Care Problems Medical Problems: (1) Community acquired pneumonia Status: Acute Comment Review of Relevant I have reviewed the following items sammy (where applicable) has been applied. Labs Microbiology 10/12/16 Blood Culture - Preliminary, Resulted NO GROWTH AFTER 2 DAYS 10/12/16 Gram Stain - Final, Complete Medications Current Medications Cefpodoxime Proxetil (Vantin) 200 mg BID PO Last administered on 10/15/16t 09: 23; Start 10/14/16 at 10:30 Vitals/I & O Vital Sign - Last 24 Hours 10/14/16 10/14/16 10/14/16 10/14/16 11:00 11:02 15:00 16:01 Temp 97.4 97.3 97.4 97.3 Pulse 84 74 Resp 20 22 B/P (MAP) 136/78 (97) 136/82 (100) Pulse Ox 96 95 97 O2 Delivery Room Air Room Air Room Air 10/14/16 10/14/16 10/14/16 10/14/16 19:00 19:27 20:00 22:45 Temp 98.9 98.6 98.9 98.6 Pulse 110 100 Resp 16 19 B/P (MAP) 149/86 (107) 137/72 (93) Pulse Ox 95 96 94 O2 Delivery Room Air Room Air Room Air Room Air 10/15/16 10/15/16 10/15/16 03:00 07:00 07:35 Temp 98.4 97.4 98.4 97.4 Pulse 94 58 Resp 20 18 B/P (MAP) 155/80 (105) 122/62 (82) Pulse Ox 95 96 95 O2 Delivery Room Air Room Air Room Air Intake and Output 10/14/16 10/14/16 10/15/16 15:00 23:00 07:00 Intake Total 360 ml 1090 ml Output Total 1000 ml Balance 360 ml 90 ml JUDY WELCH MD October 15, 2016 09:56
[2016-10-15] MEDS ORDERED: PROM6.25 PO (09:57)
[2016-10-15 11:00] VITALS: BP 114/78
--- NOTE | 2016-10-15 13:46 | PDOC ---
PULMONARY PROGRESS NOTES Subjective less cough Vitals Vital Signs Date Time Temp Pulse Resp B/P (MAP) Pulse Ox O2 Delivery O2 Flow Rate FiO2 10/15/16 11:40 95 Room Air 10/15/16 11:00 97.6 62 22 114/78 (90) 97.6 General: Alert, No acute distress Lungs: Clear Cardiovascular: S1 Abdomen: Soft Neuro Exam: Alert Extremities: No Edema Skin: Warm Medications Active Scripts Medications Dose Route/Sig Max Daily Dose Days Date Category [Albuterol Inhaler] PRN 10/10/16 Reported [Motion Sickness Med] PO DAILY 10/10/16 Reported Impression . 1. Upper lobe pneumonia, suspect community acquired.No aspiration 2. History of large thyroid mass since 2012. Pt did have apparent Large B cell lymphoma found on Thyroid mass biopsy from 10/09. Pt/ family confirmed that she received minimal tx from Dr. Davies previously due to significant cytopenias 3. no silent aspiration. 4. Dysphagia, may be caused by large neck mass causing some esophageal compression. Plan . 1. Aspiration precaution. 2. supportive Rx, 3. Continue antibiotics. PO 4. recommendation per PCP/surgery .for thyroid mass 5. Follow oncology recommendation D/W FAMILY. OK WITH GRETA JONES MD October 15, 2016 13:46
--- NOTE | 2016-10-15 15:46 | PDOC ---
Provider Note Provider Note discharge summary dictated. #[id number] JUDY WELCH MD October 15, 2016 15:46
--- NOTE | 2016-10-15 22:19 | DS ---
DATE OF DISCHARGE: 10/15/2016 REASON FOR ADMISSION TO THE HOSPITAL: Cough, shortness of breath, community-acquired pneumonia. CONSULTATIONS: 1. Dr. De La Fuente. 2. Dr. Cornejo. 3. Dr. Lin. PROCEDURES DONE: 1. CT chest. 2. Ultrasound of the neck. 3. Video swallow study. HOSPITAL COURSE: The patient is an 81-year-old female patient, has a history of B-cell lymphoma of the thyroid in 2012. She had minimal treatment and at that time, she was sick to further undergo another aggressive treatment. She was having cough with shortness of breath, came to the Emergency Room. Chest x-ray shows infiltrates in the lung. CT chest shows pneumonia and also large thyroid mass and also ultrasound of the neck was considered thyroid mass. The patient was seen by General Surgery. The patient had this thyroid mass same seize for last 4 years. She is not too keen to have any surgery on at this point. The patient is seen by Speech because of problem with swallowing. Video swallow study shows no obstruction, no aspiration. The patient was seen by Pulmonology, Dr. De La Fuente, was treated with Zithromax and Rocephin and changed to oral Zithromax and vantin. Repeat x-ray shows improvement. The patient was seen by Hematology/Oncology because of history of lymphoma B-cell of the thyroid and it was felt that no aggressive treatment at this time, she was kind of no increasing in size. On the whole, the patient's condition improved. She wanted to go home, think about further surgery on the thyroid, will schedule as outpatient. FINAL DIAGNOSES: 1. Community-acquired pneumonia. 2. Thyroid mass, history of B-cell lymphoma of the thyroid gland.treated 2012. 3. Hypertension. PLAN: The patient is being discharged home, oral antibiotics and then will follow in the office and further recommendation to follow. JUDY WELCH MD DR: ESTUARDO/shavon JOB#: [id number] / [id number] TERE
== END 2016-10-15 16:15 | disposition home or self-care (01) | DRG 177 ==
LOC: ER 17:15 → 5 SOUTH 19:06
PROVIDERS: ADMIT Internal Medicine; ATTEND Internal Medicine
DX: J15.6 Pneumonia due to other Gram-negative bacteria (principal); J96.01 Acute respiratory failure with hypoxia; C85.10 Unspecified B-cell lymphoma, unspecified site; D63.8 Anemia in other chronic diseases classified elsewhere; D89.0 Polyclonal hypergammaglobulinemia; I11.0 Hypertensive heart disease with heart failure; I50.9 Heart failure, unspecified; J39.8 Other specified diseases of upper respiratory tract; R09.02 Hypoxemia; R13.10 Dysphagia, unspecified; Z92.21 Personal history of antineoplastic chemotherapy; Z90.710 Acquired absence of both cervix and uterus
CPT/HCPCS: 36415; 71020; 71275; 74230; 76536; 80048; 80053; 82607; 82746; 83540; 83550; 83735; 83880; 84443; 84484; 85027; 87040; 87070; 87205; 93005; 94250; 94640; 94760; 96361; 96374; J0456; J0690; J0696; J1650; J7030; J7050; J7620; J8597; Q0144; Q9967; 92526; 92610; 92611; 97110; 97116; 97530; 97535; 99285-25

== ENCOUNTER → 2016-10-29 | Outpatient (CLI) | payer BC ==
[2016-10-15 11:00] VITALS: BP 114/78
[~2016-10-29] MED LIST: AZIT250T6 PO; Albuterol Inhaler; CEFP100T PO; PROM6.25 PO; [UNRECOGNIZED DRUG - OTHER] PO
--- NOTE | 2016-10-29 15:58 | RAD ---
Indication difficulty breathing. Pneumonia. Persistent cough. PA and lateral views of the chest were obtained and are compared to an exam 10/12/2016. Note is made of a CT examination of the chest 10/10/2016. Cardiomegaly is unchanged. There is no gross congestive heart failure. Aeration of the right upper lobe has improved but some residual atelectasis and infiltrate persist. Patchy opacities in the left upper lobe appears similar. A new finding is not seen. IMPRESSION: Slight interval improvement in the appearance of the chest
== END | disposition home or self-care (01) ==
LOC: RAD 15:16
PROVIDERS: ATTEND Internal Medicine
DX: J18.9 Pneumonia, unspecified organism (principal)
CPT/HCPCS: 71020

== ENCOUNTER → 2017-09-02 | Outpatient (CLI) | payer BC | END | disposition home or self-care (01) | LOC: MAMMO 10:48 | DX: Z12.31 Encounter for screening mammogram for malignant neoplasm of breast (principal) | CPT/HCPCS: 77067 ==

== ENCOUNTER → 2019-09-13 | Outpatient (CLI) | payer BC ==
[2018-06-07 11:00] VITALS: BP 116/80
[~2019-09-13] MED LIST changes: +ASPI-612 PO; +CARV3.1210 PO; +DIME50TA10 PO; +IPRA3AMP29 NEB; +LISI-338 PO; -PROM6.25 PO; +PROM6.257 PO; +Pantoprazole PO
--- NOTE | 2019-09-13 12:48 | RAD ---
CHEST PA LATERAL History: Shortness of breath, broken ribs Comparison: 06/07/2018 Portable Chest X-ray Exam. Findings: Frontal and lateral views of the chest were obtained. Mild cardiomegaly noted. Scattered linear atelectasis or scarring involving the lung kelley again seen. Interstitial thickening of the lung kelley again noted. No pneumothorax. Biapical pleural thickening is evident. Osteopenia noted. Old left upper rib fractures are present. Old left lower rib fractures are present. No definite acute fractures are needed. IMPRESSION: Interstitial thickening of the lung kelley again seen. Improved pulmonary aeration is present associated left lung base. Old rib fractures. Consider further evaluation if acute fracture is a persistent concern.. Electronically signed by: Fernando Desai MD (09/13/2019 12:45 PM) [id number]
== END | disposition home or self-care (01) ==
LOC: RAD 11:54
PROVIDERS: ATTEND Internal Medicine
DX: J92.9 Pleural plaque without asbestos (principal); J18.9 Pneumonia, unspecified organism; M85.88 Other specified disorders of bone density and structure, other site; I51.7 Cardiomegaly
CPT/HCPCS: 71046